=== PATIENT | male | born 1960 | race Caucasian/White ===

== ENCOUNTER 2016-08-26 16:04 | Inpatient (IN) | payer MEDICAID ==
[~2016-08-26] VITALS: Ht 182.9 cm; Wt 77.6 kg
[2016-08-26] MEDS ORDERED: ACET325T9 PO (16:29)
[2016-08-26] MEDS ORDERED: ATOR10TA60 PO (16:30)
[2016-08-26] MEDS ORDERED: DIVA125C PO (16:31)
[2016-08-26] MEDS ORDERED: CALC200T3 PO (16:31)
[2016-08-26] MEDS ORDERED: DOCU100C28 PO (16:32)
[2016-08-26] MEDS ORDERED: DONE10TA7 PO (16:33)
[2016-08-26] MEDS ORDERED: FLUT9.9S NS (16:34)
[2016-08-26] MEDS ORDERED: FLUT16SP21 NS (16:34)
[2016-08-26] MEDS ORDERED: GABA-585 PO (16:37)
[2016-08-26] MEDS ORDERED: MAGN2400 PO (16:37)
[2016-08-26] MEDS ORDERED: MAGN400O7 PO (16:37)
[2016-08-26] MEDS ORDERED: MONT10TA9 PO (16:38)
[2016-08-26] MEDS ORDERED: QUET50TA5 PO (16:43)
[2016-08-26] MEDS ORDERED: ALBU18HF IH (16:46)
--- NOTE | 2016-08-26 17:17 | NUR ---
Pt arrived on unit via gurney accompanied by EMS staff. Direct Admission. Dx: Dementia w delusions, BD. Pt A/O to self, . Pt refused most assessment questions. Pt calm, in dining room eating dinner. Will continue to monitor.
[2016-08-26] MEDS ORDERED: METHYL SALICYLATE/MENTHOL TOPICAL OINTMENT 29GM TUBE. TP PRN (17:30)
[2016-08-26] MEDS ORDERED: MAG HYDROX/AL HYDROX/SIMETH 30 ML ORAL.SUSP PO PRN (17:30)
[2016-08-26] MEDS ORDERED: ACETAMINOPHEN 325 MG TABLET PO PRN ×2 (17:30→18:15)
[2016-08-26] MEDS ORDERED: MAGNESIUM HYDROXIDE 2,400 MG/30 ML ORAL.SUSP. PO PRN (17:30)
[2016-08-26 17:43] VITALS: BP 124/73
[2016-08-26] MEDS ORDERED: ALBUTEROL SULFATE 8GM INHALER. IH PRN (18:30)
[2016-08-26] MEDS ORDERED: CALCIUM CARBONATE 500 MG TAB.CHEW PO PRN (18:30)
[2016-08-26] MEDS ORDERED: ALBUTEROL SULFATE 2.5 MG/3 ML NEBU. NEB PRN (18:45)
--- NOTE | 2016-08-26 18:45 | NUR ---
Order placed for Dr. Todd consult re: hx seizures. Dr. Todd paged and notified.
[2016-08-26] MEDS ORDERED: POLYVINYL ALCOHOL 1.4% OPHTH SOLUTION 15ML BOTTLE. OU PRN (19:00)
[2016-08-26] MEDS: QUEtiapine 50 MG TABLET. PO SCH (19:53)
[2016-08-26] MEDS: DONEPEZIL HCL 10 MG TABLET PO SCH (19:53)
[2016-08-26] MEDS: DIVALPROEX 125 MG CAP.SPRINK PO SCH (19:53)
[2016-08-26] MEDS: GABAPENTIN 100 MG CAPSULE. PO SCH (19:53)
[2016-08-26 20:49] LABS: BASO % 1 % (0-3); EOS # 0.3 x10^3/uL (0.0-0.7); EOS % 7 % (0-3); HEMATOCRIT 44.5 % (39.0-53.0); HEMOGLOBIN 14.7 g/dL (13.0-17.5); LYMPH # 0.9 x10^3/uL (1.0-4.8); LYMPH % 18 % (24-48); MEAN CORPUSCULAR HEMOGLOBIN 30 pg (25-35); MEAN CORPUSCULAR HGB CONC 33 g/dL (31-37); MEAN CORPUSCULAR VOLUME 91 fL (79-100); MONO # 0.4 x10^3/uL (0.0-1.1); MONO % 9 % (0-9); NEUT # 3.2 x10^3uL (1.8-7.7); NEUT % 66 % (31-73); PLATELET COUNT 115 x10^3/uL (140-400); RED BLOOD COUNT 4.92 x10^6/uL (4.30-5.70); RED CELL DISTRIBUTION WIDTH 13.7 % (11.5-14.5); WHITE BLOOD COUNT 4.9 x10^3/uL (4.0-11.0)
--- NOTE | 2016-08-26 20:54 | PDOC ---
Exam Yair Demential Exam: Yair Note: Please also refer to the separate dictated note~for this date of service dictated separately.~Patient seen individually. Discussed the patient with Nursing staff reviewed the chart.~Reviewed interim history and current functioning. Reviewed vital signs,~Labs/ Radiology~and current medications noted below. Continue current treatment with the changes noted in the dictated addendum note Assessment: Vital Signs: Vital Signs Date Time Temp Pulse Resp B/P Pulse Ox O2 Delivery O2 Flow Rate FiO2 08/26/16 17:43 97.8 79 18 124/73 97 Labs: Laboratory Tests Test 08/26/16 20:10 White Blood Count 4.9x10^3/uL (4.0-11.0) Red Blood Count 4.92x10^6/uL (4.30-5.70) Hemoglobin 14.7g/dL (13.0-17.5) Hematocrit 44.5% (39.0-53.0) Mean Corpuscular Volume 91fL (79-100) Mean Corpuscular Hemoglobin 30pg (25-35) Mean Corpuscular Hemoglobin Concent 33g/dL (31-37) Red Cell Distribution Width 13.7% (11.5-14.5) Platelet Count 115x10^3/uL (140-400) L Neutrophils (%) (Auto) 66% (31-73) Lymphocytes (%) (Auto) 18% (24-48) L Monocytes (%) (Auto) 9% (0-9) Eosinophils (%) (Auto) 7% (0-3) H Basophils (%) (Auto) 1% (0-3) Neutrophils # (Auto) 3.2x10^3uL (1.8-7.7) Lymphocytes # (Auto) 0.9x10^3/uL (1.0-4.8) L Monocytes # (Auto) 0.4x10^3/uL (0.0-1.1) Eosinophils # (Auto) 0.3x10^3/uL (0.0-0.7) Basophils # (Auto) 0.0x10^3/uL (0.0-0.2) Current Medications: Meds: Current Medications Acetaminophen (Tylenol) 650 mg PRN Q6HRS PRN PO PAIN / TEMP; Start 08/26/16 at 17:30; Stop 08/26/16 at 18:41; Status DC Multi-Ingredient Ointment (Analgesic [place]) 1 heather PRN QID PRN TP MUSCLE PAIN; Start 08/26/16 at 17:30 Al Hydroxide/Mg Hydroxide (Mylanta Plus Xs) 15 ml PRN AFTMEALHC PRN PO DYSPEPSIA; Start 08/26/16 at 17:30 Magnesium Hydroxide (Milk Of Magnesia) 2,400 mg PRN QHS PRN PO CONSTIPATION; Start 08/26/16 at 17:30 Acetaminophen (Tylenol) 650 mg PRN Q4HRS PRN PO DRY EYE; Start 08/26/16 at 18: 15 Divalproex Sodium (Depakote Sprinkles) 125 mg QID PO Last administered on 19:53; Start 08/26/16 at 21:00 Donepezil HCl (Aricept) 10 mg HS PO Last administered on 08/26/16 19:53; Start 08/26/16 at 21:00 Quetiapine Fumarate (SEROquel) 50 mg TID PO Last administered on 08/26/16 19: 53; Start 08/26/16 at 21:00 Albuterol Sulfate (Ventolin Hfa) 2 puff PRN Q4HRS PRN IH WHEEZING; Start at 18:30; Status UNV Atorvastatin Calcium (Lipitor) 10 mg DAILY PO ; Start 08/27/16 at 09:00 Calcium Carbonate/ Glycine (Tums) 500 mg PRN Q4HRS PRN PO HEARTBURN / GAS; Start 08/26/16 at 18:30 Docusate Sodium (Colace) 100 mg DAILY PO ; Start 08/27/16 at 09:00 Gabapentin (Neurontin) 100 mg TID PO Last administered on 08/26/16 19:53; Start 08/26/16 at 21:00 Magnesium Hydroxide (Milk Of Magnesia) 800 mg DAILY PO ; Start 08/27/16 at 09:00 Montelukast Sodium (Singulair) 10 mg DAILY PO ; Start 08/27/16 at 09:00 Fluticasone Propionate (Flonase) 2 spray DAILY NS ; Start 08/27/16 at 09:00 Albuterol Sulfate (Ventolin) 2.5 mg PRN Q4HRS PRN NEB SHORTNESS OF BREATH; Start 08/26/16 at 18:45 Artificial Tears (Artificial Tears) 1 drop PRN Q15MIN PRN OU DRY EYE; Start at 19:00 Ergocalciferol (Vitamin D2) 50,000 unit WEEKLY PO ; Start 08/29/16 at 12:00 Polyethylene Glycol (miraLAX) 17 gm DAILY PO ; Start 08/27/16 at 09:00 Active Scripts Active Reported Ventolin Hfa Inhaler (Albuterol Sulfate) 18 Gm Hfa.aer.ad 2 Puff IH PRN Q4HRS PRN Seroquel (Quetiapine Fumarate) 50 Mg Tablet 1 Tab PO TID Montelukast Sodium Tablet (Montelukast Sodium) 10 Mg Tablet 10 Mg PO DAILY Milk Of Magnesia (Magnesium Hydroxide) 400 Mg/5 Ml Oral.susp 800 Mg PO DAILY Gabapentin 100 Mg Capsule 100 Mg PO TID Flonase Allergy Relief (Fluticasone Propionate) 9.9 Ml Helm.susp 1 Sprays NS DAILY Donepezil Hcl 10 Mg Tablet 1 Tab PO HS Docusate Sodium 100 Mg Capsule 100 Mg PO DAILY Depakote Sprinkle (Divalproex Sodium) 125 Mg Cap.sprink 125 Mg PO QID Tums (Calcium Carbonate) 200 Mg Tab.chew 200 Mg PO PRN Q4HRS PRN Atorvastatin Calcium 10 Mg Tablet 10 Mg PO DAILY Tylenol (Acetaminophen) 325 Mg Tablet 650 Mg PO PRN Q4HRS PRN Diagnosis: Problems: (1) Anxiety disorder (2) Dementia in Alzheimer's disease with delusions (3) Dementia in Alzheimer's disease with depression (4) Dementia, vascular, with delusions (5) Dementia, vascular, with depression (6) Impulse control disorder ISREAL CUEVA MD Aug 26, 2016 20:54
[2016-08-26 20:56] LABS: ALBUMIN 3.7 g/dL (3.4-5.0); CALCIUM 9.1 mg/dL (8.5-10.1); CREATININE 0.9 mg/dL (0.7-1.3); GFR 87.3; MAGNESIUM 2.1 mg/dL (1.8-2.4); POTASSIUM 3.5 mmol/L (3.5-5.1); TOTAL BILIRUBIN 0.7 mg/dL (0.2-1.0); TOTAL PROTEIN 7.3 g/dL (6.4-8.2)
--- NOTE | 2016-08-26 21:42 | NUR ---
Behavior Intervention Response and Plan: BIRP Note: Behavior: Assumed Care of patient, patient located in Day Room at shift change. Patient exhibited the following behavior Restless, Calm, Disorganized. Brief assessment on rounds of vital signs, medication needs, lab studies, and pain. Treatment plan problems . Intervention: Patient assessed and the following interventions initiated safety checks 15 Minute Checks Cognitive Assessment , Head to toe Assessment , Medications. Response: After interactions and interventions patient responded in the following manner, Compliant , Cooperative ,Compulsive. Continue to assess behaviors and condition will continue to monitor throughout the shift as needed. Plan: Continue to monitor Master Treatment Plan for patient's progress toward short term goals of Decreased Anxiety, Decreased Agitation, usp goals to return to previous living setting vs placement. Continue to assess patient for changes in above assessment. Monitor for medication needs, pain, and safety concerns. Hourly rounding performed to ensure safe environment.
--- NOTE | 2016-08-27 06:48 | NUR ---
SW reviewed pt insurance upon admit. No C-snap, pt intake and face sheet state [place] Medicaid. Precertification will be needed.
[2016-08-27] MEDS: QUEtiapine 50 MG TABLET. PO SCH ×3 (08:23→21:22)
[2016-08-27] MEDS: DIVALPROEX 125 MG CAP.SPRINK PO SCH ×4 (08:23→21:22)
[2016-08-27] MEDS: GABAPENTIN 100 MG CAPSULE. PO SCH ×3 (08:23→21:21)
[2016-08-27] MEDS: DOCUSATE SODIUM 100 MG CAPSULE PO SCH (08:25)
[2016-08-27] MEDS: POLYETHYLENE GLYCOL 3350 17 GM PACKET. PO SCH (08:25)
[2016-08-27] MEDS: MONTELUKAST 10 MG TABLET. PO SCH (08:25)
[2016-08-27] MEDS: ATORVASTATIN CALCIUM 10 MG TABLET. PO SCH (08:26)
[2016-08-27] MEDS: MAGNESIUM HYDROXIDE 2,400 MG/30 ML ORAL.SUSP. PO SCH (08:26)
--- NOTE | 2016-08-27 08:26 | NUR ---
SW called and left message for pt sister DPOA for information regarding PSA.
[2016-08-27] MEDS ORDERED: FLUTICASONE 50MCG/NASAL SPRAY 16GM BOTTLE. NS SCH (09:00)
--- NOTE | 2016-08-27 09:03 | HP ---
ADMIT DATE: 08/26/2016 IDENTIFYING DATA: The patient is a 55-year-old male referred to us from [facility] where the patient had been hospitalized for about 3 days from [facility] in [place], [place] on account of increasing agitation, aggression, frequent falls, inability to follow commands, being impulsive, aggressive towards a certain resident and staff resistive to care, spitting on staff within the context of his dementia secondary to polysubstance abuse and possibly Alzheimer's vascular. The patient was medically stabilized, was still agitated, impulsive, aggressive, felt he was dangerous to return back to the pen[facility] without further psychiatric stabilization and then referred to us. CHIEF COMPLAINT: "No." The patient is rambling and the speech difficult to understand. He has multiple sutured wounds on the forehead, which had been taped up. HISTORY OF PRESENT ILLNESS: The patient has a history of dementia, multifactorial as noted above and psychotic symptoms and frequent falls. At the penitentiary, as noted, he was extremely combative, falling a lot. At the penitentiary, it took several people to pull the patient down for his sutures and then he would get aggressive. He had several visits to the Emergency Room for falls and combativeness and a prior inpatient psychiatric hospitalization at [facility]. CT head showed no acute abnormality during these visits other than chronic small vessel ischemic disease. No clear history of bipolar disorder, suicidal or homicidal ideation, but the dangerous behaviors are above. PAST PSYCHIATRIC HISTORY: As above. MEDICAL HISTORY: Frequent falls, forehead injuries which have been sutured, history of frequent falls, hypernatremia, somnolence, psychosis, COPD, seizure disorder, thrombocytopenia, substance abuse history. DRUG ALLERGIES: Negative. CODE STATUS: DNR. CURRENT PSYCHOTROPICS: Depakote Sprinkle 125 mg 4 times a day, Aricept 10 mg a day, Neurontin 100 mg 3 times a day, Seroquel 50 mg 3 times a day. FAMILY HISTORY: Noncontributory. SOCIAL HISTORY: No physical, sexual or elder abuse history is noted. He is not known to be a perpetrator. He is on a pureed diet. Past history of polysubstance abuse, detailed will be inquired during this hospitalization. MENTAL STATUS EXAM: The patient was seen individually on the evening of 08/26. He is oriented to himself, rambling in his speech. Insight, judgment, recent and remote memory, attention, concentration, fund of knowledge poor, consistent with his diagnosis. VITAL SIGNS: Temperature 97.8, pulse 79, BP 124/73. REVIEW OF SYSTEMS: Ambulation impaired. No CV, , pulmonary, eye, ENT system symptoms on review. Reliability poor. IMPRESSION: Major neurocognitive disorder, multifactorial, possibly due to substance abuse or Alzheimer's vascular with delusions, behavioral disturbance and depression; anxiety disorder, unspecified; impulse control disorder, unspecified. Rest diagnoses as above including seizure disorder, thrombocytopenia. TREATMENT PLAN: Admit to the Geropsychiatry unit at [facility]. I will see the patient daily individually from a psychiatric standpoint. Medical followup with Dr. Steele/Dr. Chadwick. Consult Dr. Todd, Neurology, for managing seizures especially since he has low platelet counts consequent to Depakote in all probability. We will adjust psychotropics try and minimize Seroquel consequent to his fall. Adjust further as clinically indicated. MAN Javon CUEVA MD DR: TSERING/daniel JOB#: [id number] / [id number]
--- NOTE | 2016-08-27 09:51 | NUR ---
Dr Todd ordered EEG of patient in relationship to seizures. Nelson notified of order.
--- NOTE | 2016-08-27 09:52 | NUR ---
Patient has order for labs, very resistive at this time. Crushed this nurses fingers with his hand. Will attempt at a later time.
--- NOTE | 2016-08-27 10:09 | NUR ---
Patient pacing around day room, pulling on doors. Unable to redirect. Pacing is increasing. Attempted to pull curtains down. Notified Dr. Garcia and requested order for PRN medication for agitation.
--- NOTE | 2016-08-27 10:45 | NUR ---
CASE MANAGEMENT NOTE [place] Medicaid called for pre-authorization, ph#[phone], ref#[id number]. Called back with Dr Garcia's license # per their request. Authorized 3 days. They will call back with certification #.
--- NOTE | 2016-08-27 11:00 | NUR ---
patient in seclusion hallway due to pushing a female patient against the wall and then patting a staff member on the bottom. Will continue to monitor.
--- NOTE | 2016-08-27 11:15 | NUR ---
THERAPEUTIC RECREATION GROUP NOTE TITLE :Movement to Music: Flexibility ACTIVITY : Movement/ Exercise GOAL : Increase morale, attention, flexibility. Decrease stress/anxiety. DURATION : 35 Minutes RESPONSE : No participation
--- NOTE | 2016-08-27 12:01 | HP ---
ADMIT DATE: 08/27/2016 MEDICAL HISTORY AND PHYSICAL FOR THE [facility] REASON FOR ADMISSION TO THE [facility]: This is a 55-year-old male with early onset dementia, who was transferred from [facility] beds at the [facility] where he had been inpatient for 3 days. He originally comes from a locked unit at [facility] and was in [place], [place]. He has been falling frequently, sleepy, psychotic, spitting on staff, not following commands and being aggressive toward one particular resident at the nursing facility. CURRENT MEDICAL PROBLEMS: Include hypernatremia, mood disorder, frequent falls, recent fall requiring sutures over right head 3 days ago, dementia with behavior disturbance, COPD, seizure disorder, thrombocytopenia. He has a soft palate problem with subsequent difficult speech. MEDICATION CHANGES: Depakote has been decreased from 250 four times a day to 125 four times a day because of the thrombocytopenia, also possibly because of falls. ALLERGIES: None. MEDICATIONS: Reviewed and are available on the MAR. SOCIAL HISTORY: There is report from his sister that he has a remote history of smoking meth and alcohol problems as well. REVIEW OF SYSTEMS: The patient is unable to state. PHYSICAL EXAMINATION: VITAL SIGNS: Blood pressure 124/73, pulse 79, respirations 18, pulse ox is 97% on room air, temperature 97.8. Height 72 inches, weight 178.19 pounds, BMI 24.2. GENERAL: Unkempt appearing 55-year-old, in no acute distress. HEENT: His hearing is normal. His eyes were clear. His nose was patent. His tongue, he would not open his mouth. His speech is impaired. NECK: Supple. LUNGS: Clear. CARDIOVASCULAR: Regular rhythm and rate. ABDOMEN: Soft, nontender. EXTREMITIES: With evidence of venous stasis. He has extensive onychomycosis of his toes. His gait; he ambulates without a walker, unable to do cranial nerves as the patient would not cooperate. SKIN: The patient has a large sutured laceration over the brow with extensive bruising at least seven sutures are noted. LABORATORY DATA: Platelet count is and he has 7% eosinophils. His sodium 145 and is normal. IMAGING: CT of the head from [facility] shows moderate generalized cerebral atrophy and white matter disease and intracranial atherosclerosis. ASSESSMENT: 1. Dementia with behavior disturbance. 2. Remote history of meth use. 3. I believe also history of alcohol abuse. 4. Mild thrombocytopenia. 5. Status post fall with sutures. 6. Sedation from medications. 7. Chronic obstructive pulmonary disease. 8. Mood disorder. PLAN: Treat his medical conditions and follow along with Dr. Garcia. He will need his sutures out in 5 to 7 days. ZHANNA WINSLOW DO DR: RAVEN/daniel JOB#: [id number] / [id number]
--- NOTE | 2016-08-27 12:40 | NUR ---
Pt intrusive, not redirectable. Given PRN zyprexa 2.5mg PO per order and will continue to monitor.
--- NOTE | 2016-08-27 12:58 | NUR ---
Case Management Note 3 days authorized from [place] Medicaid help desk, with clinical updates or discharge 08-29-16, reference number [id number]. Call hold for any nurse to give clinical.
[2016-08-27 14:34] LABS: THYROID STIM HORMONE (TSH) 2.16 uIU/mL (0.358-3.740)
--- NOTE | 2016-08-27 14:45 | NUR ---
THERAPEUTIC RECREATION GROUP NOTE TITLE :Bin or Basket: [employer] history, quiz and game ACTIVITY : Activities and Games GOAL : Stimulate memory, increase socialization DURATION : 60 minutes RESPONSE : Minimal participation. Pt. sat quietly most of the time with the group but was slow to comply and did not follow directions the entire time. Towards the end of the group, Pt. moved a chair closer to a counter and used it as a step stool to sit upon the counter. Pt. stared blankly at staff who asked him to step down. Pt. did not say a word and did not get down for the rest of the activity.
--- NOTE | 2016-08-27 16:30 | NUR ---
pt found leading female patient into an empty room. this was the same female patient that he was trying to hold hands with and also rubbing her arm. pt became very agitated when from female patient. pt put in the [facility].
--- NOTE | 2016-08-27 17:14 | NUR ---
pt was given PRN. pt in [facility] beating at doors and verbal aggressive towards staff.
[2016-08-27 18:46] LABS: VAL ACID 54 mcg/mL (50-100)
[2016-08-27 19:13] LABS: T3 TOTAL 78 ng/dL (71-180); THYROXINE 6.3 ug/dL (4.5-12.0)
--- NOTE | 2016-08-27 20:59 | PDOC ---
Exam Yair Demential Exam: Yair Note: Please also refer to the separate dictated note~for this date of service dictated separately.~Patient seen individually. Discussed the patient with Nursing staff reviewed the chart.~Reviewed interim history and current functioning. Reviewed vital signs,~Labs/ Radiology~and current medications noted below. Continue current treatment with the changes noted in the dictated addendum note Assessment: Vital Signs: Vital Signs Date Time Temp Pulse Resp B/P Pulse Ox O2 Delivery O2 Flow Rate FiO2 08/27/16 15:29 97.6 88 18 96 08/26/16 17:43 124/73 I&O Intake and Output 08/27/16 07:00 Intake Total 360 ml Balance 360 ml Intake Oral 360 ml Labs: Laboratory Tests Test 08/27/16 18:15 Valproic Acid Level 54mcg/mL (50-100) Valproic Acid Last Dose Date 08/26/16 Valproic Acid Last Dose Time 2100 Current Medications: Meds: Current Medications Acetaminophen (Tylenol) 650 mg PRN Q6HRS PRN PO PAIN / TEMP; Start 08/26/16 at 17:30; Stop 08/26/16 at 18:41; Status DC Multi-Ingredient Ointment (Analgesic [place]) 1 heather PRN QID PRN TP MUSCLE PAIN; Start 08/26/16 at 17:30 Al Hydroxide/Mg Hydroxide (Mylanta Plus Xs) 15 ml PRN AFTMEALHC PRN PO DYSPEPSIA; Start 08/26/16 at 17:30 Magnesium Hydroxide (Milk Of Magnesia) 2,400 mg PRN QHS PRN PO CONSTIPATION; Start 08/26/16 at 17:30 Acetaminophen (Tylenol) 650 mg PRN Q4HRS PRN PO DRY EYE; Start 08/26/16 at 18: 15 Divalproex Sodium (Depakote Sprinkles) 125 mg QID PO Last administered on 16:18; Start 08/26/16 at 21:00 Donepezil HCl (Aricept) 10 mg HS PO Last administered on 08/26/16 19:53; Start 08/26/16 at 21:00 Quetiapine Fumarate (SEROquel) 50 mg TID PO Last administered on 08/27/16 12: 38; Start 08/26/16 at 21:00 Albuterol Sulfate (Ventolin Hfa) 2 puff PRN Q4HRS PRN IH WHEEZING; Start at 18:30; Status UNV Atorvastatin Calcium (Lipitor) 10 mg DAILY PO Last administered on 08/27/16 08 :26; Start 08/27/16 at 09:00 Calcium Carbonate/ Glycine (Tums) 500 mg PRN Q4HRS PRN PO HEARTBURN / GAS; Start 08/26/16 at 18:30 Docusate Sodium (Colace) 100 mg DAILY PO Last administered on 08/27/16 08:25; Start 08/27/16 at 09:00 Gabapentin (Neurontin) 100 mg TID PO Last administered on 08/27/16 12:38; Start 08/26/16 at 21:00 Magnesium Hydroxide (Milk Of Magnesia) 800 mg DAILY PO Last administered on 08:26; Start 08/27/16 at 09:00 Montelukast Sodium (Singulair) 10 mg DAILY PO Last administered on 08/27/16 08 :25; Start 08/27/16 at 09:00 Fluticasone Propionate (Flonase) 2 spray DAILY NS Last administered on 08:23; Start 08/27/16 at 09:00; Stop 08/27/16 at 15:01; Status DC Albuterol Sulfate (Ventolin) 2.5 mg PRN Q4HRS PRN NEB SHORTNESS OF BREATH; Start 08/26/16 at 18:45 Artificial Tears (Artificial Tears) 1 drop PRN Q15MIN PRN OU DRY EYE; Start at 19:00 Ergocalciferol (Vitamin D2) 50,000 unit WEEKLY PO ; Start 08/29/16 at 12:00 Polyethylene Glycol (miraLAX) 17 gm DAILY PO Last administered on 08/27/16 08: 25; Start 08/27/16 at 09:00 Olanzapine (Zyprexa Zydis) 2.5 mg PRN Q2HR PRN PO PSYCHOSIS Last administered on 08/27/16 17:02; Start 08/27/16 at 10:15 Fluticasone Propionate (Flonase) 2 spray DAILY NS ; Start 08/27/16 at 15:01 Buspirone HCl (Buspar) 10 mg BID92 PO ; Start 08/28/16 at 09:00 Active Scripts Active Reported Ventolin Hfa Inhaler (Albuterol Sulfate) 18 Gm Hfa.aer.ad 2 Puff IH PRN Q4HRS PRN Seroquel (Quetiapine Fumarate) 50 Mg Tablet 1 Tab PO TID Montelukast Sodium Tablet (Montelukast Sodium) 10 Mg Tablet 10 Mg PO DAILY Milk Of Magnesia (Magnesium Hydroxide) 400 Mg/5 Ml Oral.susp 800 Mg PO DAILY Gabapentin 100 Mg Capsule 100 Mg PO TID Flonase Allergy Relief (Fluticasone Propionate) 9.9 Ml [place].susp 1 Sprays NS DAILY Donepezil Hcl 10 Mg Tablet 1 Tab PO HS Docusate Sodium 100 Mg Capsule 100 Mg PO DAILY Depakote Sprinkle (Divalproex Sodium) 125 Mg Cap.sprink 125 Mg PO QID Tums (Calcium Carbonate) 200 Mg Tab.chew 200 Mg PO PRN Q4HRS PRN Atorvastatin Calcium 10 Mg Tablet 10 Mg PO DAILY Tylenol (Acetaminophen) 325 Mg Tablet 650 Mg PO PRN Q4HRS PRN Diagnosis: Problems: (1) Anxiety disorder (2) Dementia in Alzheimer's disease with delusions (3) Dementia in Alzheimer's disease with depression (4) Dementia, vascular, with delusions (5) Dementia, vascular, with depression (6) Impulse control disorder ISREAL CUEVA MD Aug 27, 2016 20:59
[2016-08-27] MEDS: DONEPEZIL HCL 10 MG TABLET PO SCH (21:21)
--- NOTE | 2016-08-27 23:08 | NUR ---
Behavior Intervention Response and Plan: BIRP Note: Behavior: Assumed Care of patient, patient located in Day Room at shift change. Patient exhibited the following behavior Wandering, Withdrawn, Disorganized. Brief assessment on rounds of vital signs, medication needs, lab studies, and pain. Treatment plan problems Dementia w/ BD and Fall Risk. Intervention: Patient assessed and the following interventions initiated safety checks 15 Minute Checks Cognitive Assessment , Medications , Oral Hydration. Response: After interactions and interventions patient responded in the following manner, Wandering , Agitated ,Disorganized. Continue to assess behaviors and condition will continue to monitor throughout the shift as needed. Plan: Continue to monitor Master Treatment Plan for patient's progress toward short term goals of Decreased Agitation, Decreased Aggression, fci goals to return to previous living setting vs placement. Continue to assess patient for changes in above assessment. Monitor for medication needs, pain, and safety concerns. Hourly rounding performed to ensure safe environment.
[2016-08-28 06:40] VITALS: BP 118/84
[2016-08-28] MEDS: DIVALPROEX 125 MG CAP.SPRINK PO SCH ×4 (07:46→20:55)
[2016-08-28] MEDS: MONTELUKAST 10 MG TABLET. PO SCH (07:46)
[2016-08-28] MEDS: ATORVASTATIN CALCIUM 10 MG TABLET. PO SCH (07:46)
[2016-08-28] MEDS: GABAPENTIN 100 MG CAPSULE. PO SCH ×3 (07:46→21:02)
[2016-08-28] MEDS: QUEtiapine 50 MG TABLET. PO SCH ×2 (07:46→11:51)
[2016-08-28] MEDS: MAGNESIUM HYDROXIDE 2,400 MG/30 ML ORAL.SUSP. PO SCH (07:46)
[2016-08-28] MEDS: DOCUSATE SODIUM 100 MG CAPSULE PO SCH (07:46)
[2016-08-28] MEDS: FLUTICASONE 50MCG/NASAL SPRAY 16GM BOTTLE. NS SCH (07:47)
[2016-08-28] MEDS: POLYETHYLENE GLYCOL 3350 17 GM PACKET. PO SCH (07:47)
[2016-08-28] MEDS: busPIRone 10 MG TABLET. PO SCH ×2 (07:53→11:51)
--- NOTE | 2016-08-28 09:31 | NUR ---
Behavior Intervention Response and Plan: BIRP Note: Behavior: Assumed Care of patient, patient located in Patient Room at shift change. Patient exhibited the following behavior Disorganized, Compliant, Compliant. Brief assessment on rounds of vital signs, medication needs, lab studies, and pain. Treatment plan problems . Intervention: Patient assessed and the following interventions initiated safety checks 15 Minute Checks Cognitive Assessment , Head to toe Assessment , Medications. Response: After interactions and interventions patient responded in the following manner, Compulsive , Compliant ,Drowsy. Continue to assess behaviors and condition will continue to monitor throughout the shift as needed. 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 Continue to assess patient for changes in above assessment. Monitor for medication needs, pain, and safety concerns. Hourly rounding performed to ensure safe environment.
--- NOTE | 2016-08-28 13:56 | NUR ---
pt refused to lie still for EEG. sutures removed from r brow with difficulty. steri strip applied. had med size scab loose. removed. does not appear to have any suture underneath. has been compliant with meds. redirectable with encouragement.
--- NOTE | 2016-08-28 16:00 | NUR ---
THERAPEUTIC RECREATION GROUP NOTE TITLE :Mark Negro Planter Painting ACTIVITY : Arts and Crafts GOAL : Increase creativity, fine motor, socialization. DURATION : 60 minutes RESPONSE : No participation.
--- NOTE | 2016-08-28 19:00 | NUR ---
THERAPEUTIC RECREATION GROUP NOTE TITLE :Complete the popular phrase/ idiom ACTIVITY : Cognitive Stimulation GOAL : Stimulate memory, Increase problem solving DURATION : 60 minutes RESPONSE : No participation.
--- NOTE | 2016-08-28 20:52 | PDOC ---
Exam Yair Demential Exam: Yair Note: Please also refer to the separate dictated note~for this date of service dictated separately.~Patient seen individually. Discussed the patient with Nursing staff reviewed the chart.~Reviewed interim history and current functioning. Reviewed vital signs,~Labs/ Radiology~and current medications noted below. Continue current treatment with the changes noted in the dictated addendum note Assessment: Vital Signs: Vital Signs Date Time Temp Pulse Resp B/P Pulse Ox O2 Delivery O2 Flow Rate FiO2 08/28/16 06:40 53 16 118/84 95 08/27/16 15:29 97.6 I&O Intake and Output 08/28/16 07:00 Intake Total 720 ml Balance 720 ml Intake Oral 720 ml Current Medications: Meds: Current Medications Acetaminophen (Tylenol) 650 mg PRN Q6HRS PRN PO PAIN / TEMP; Start 08/26/16 at 17:30; Stop 08/26/16 at 18:41; Status DC Multi-Ingredient Ointment (Analgesic [place]) 1 heather PRN QID PRN TP MUSCLE PAIN; Start 08/26/16 at 17:30 Al Hydroxide/Mg Hydroxide (Mylanta Plus Xs) 15 ml PRN AFTMEALHC PRN PO DYSPEPSIA; Start 08/26/16 at 17:30 Magnesium Hydroxide (Milk Of Magnesia) 2,400 mg PRN QHS PRN PO CONSTIPATION; Start 08/26/16 at 17:30 Acetaminophen (Tylenol) 650 mg PRN Q4HRS PRN PO DRY EYE; Start 08/26/16 at 18: 15 Divalproex Sodium (Depakote Sprinkles) 125 mg QID PO Last administered on 17:19; Start 08/26/16 at 21:00 Donepezil HCl (Aricept) 10 mg HS PO Last administered on 08/27/16 21:21; Start 08/26/16 at 21:00 Quetiapine Fumarate (SEROquel) 50 mg TID PO Last administered on 08/28/16 11: 51; Start 08/26/16 at 21:00; Stop 08/28/16 at 19:10; Status DC Albuterol Sulfate (Ventolin Hfa) 2 puff PRN Q4HRS PRN IH WHEEZING; Start at 18:30; Status UNV Atorvastatin Calcium (Lipitor) 10 mg DAILY PO Last administered on 08/28/16 07 :46; Start 08/27/16 at 09:00; Stop 08/28/16 at 14:31; Status DC Calcium Carbonate/ Glycine (Tums) 500 mg PRN Q4HRS PRN PO HEARTBURN / GAS; Start 08/26/16 at 18:30 Docusate Sodium (Colace) 100 mg DAILY PO Last administered on 08/28/16 07:46; Start 08/27/16 at 09:00 Gabapentin (Neurontin) 100 mg TID PO Last administered on 08/28/16 11:51; Start 08/26/16 at 21:00 Magnesium Hydroxide (Milk Of Magnesia) 800 mg DAILY PO Last administered on 07:46; Start 08/27/16 at 09:00 Montelukast Sodium (Singulair) 10 mg DAILY PO Last administered on 08/28/16 07 :46; Start 08/27/16 at 09:00 Fluticasone Propionate (Flonase) 2 spray DAILY NS Last administered on 08:23; Start 08/27/16 at 09:00; Stop 08/27/16 at 15:01; Status DC Albuterol Sulfate (Ventolin) 2.5 mg PRN Q4HRS PRN NEB SHORTNESS OF BREATH; Start 08/26/16 at 18:45 Artificial Tears (Artificial Tears) 1 drop PRN Q15MIN PRN OU DRY EYE; Start at 19:00 Ergocalciferol (Vitamin D2) 50,000 unit WEEKLY PO ; Start 08/29/16 at 12:00 Polyethylene Glycol (miraLAX) 17 gm DAILY PO Last administered on 08/28/16 07: 47; Start 08/27/16 at 09:00 Olanzapine (Zyprexa Zydis) 2.5 mg PRN Q2HR PRN PO PSYCHOSIS Last administered on 08/28/16 17:23; Start 08/27/16 at 10:15 Fluticasone Propionate (Flonase) 2 spray DAILY NS Last administered on 07:47; Start 08/27/16 at 15:01 Buspirone HCl (Buspar) 10 mg BID92 PO Last administered on 4/21/17at 11:51; Start 08/28/16 at 09:00 Atorvastatin Calcium (Lipitor) 20 mg DAILY PO ; Start 08/29/16 at 09:00 Prenat Multivit/ [place]/Iron/Folic Ac (Multivitamin ) 1 tab DAILY PO ; Start 08/29/16 at 09:00 Risperidone (Risperdal) 0.25 mg BID PO ; Start 08/28/16 at 21:00 Active Scripts Active Reported Ventolin Hfa Inhaler (Albuterol Sulfate) 18 Gm Hfa.aer.ad 2 Puff IH PRN Q4HRS PRN Seroquel (Quetiapine Fumarate) 50 Mg Tablet 1 Tab PO TID Montelukast Sodium Tablet (Montelukast Sodium) 10 Mg Tablet 10 Mg PO DAILY Milk Of Magnesia (Magnesium Hydroxide) 400 Mg/5 Ml Oral.susp 800 Mg PO DAILY Gabapentin 100 Mg Capsule 100 Mg PO TID Flonase Allergy Relief (Fluticasone Propionate) 9.9 Ml [place].susp 1 Sprays NS DAILY Donepezil Hcl 10 Mg Tablet 1 Tab PO HS Docusate Sodium 100 Mg Capsule 100 Mg PO DAILY Depakote Sprinkle (Divalproex Sodium) 125 Mg Cap.sprink 125 Mg PO QID Tums (Calcium Carbonate) 200 Mg Tab.chew 200 Mg PO PRN Q4HRS PRN Atorvastatin Calcium 10 Mg Tablet 10 Mg PO DAILY Tylenol (Acetaminophen) 325 Mg Tablet 650 Mg PO PRN Q4HRS PRN Diagnosis: Problems: (1) Anxiety disorder (2) Dementia in Alzheimer's disease with delusions (3) Dementia in Alzheimer's disease with depression (4) Dementia, vascular, with delusions (5) Dementia, vascular, with depression (6) Impulse control disorder ISREAL CUEVA MD Aug 28, 2016 20:52
[2016-08-28] MEDS: DONEPEZIL HCL 10 MG TABLET PO SCH (20:55)
[2016-08-28] MEDS: risperiDONE 0.25 MG TABLET. PO SCH (21:03)
--- NOTE | 2016-08-28 22:02 | PN ---
DATE: 08/27/2016 PSYCHIATRIC PROGRESS NOTE This is late entry of 08/27/2016, covers elements not covered in my initial note. SUBJECTIVE: The patient was staffed at treatment team meeting with the entire team at morning of 08/27/2016, seen individually evening of 08/27/2016. He remains quite labile, anxious, agitated, was trying to take one of the female, demented patients into a room and then attempted with another one. He has had to be placed in a separate hallway, seems dangerous, impulsive, certainly very confused, resistive to care, slept in the quiet room. REVIEW OF SYSTEMS: No CV, , pulmonary, eye, ENT system symptoms on review. Reliability poor. MENTAL STATUS EXAMINATION: Oriented to himself. Insight, judgment, recent and remote memory, attention, concentration, fund of knowledge poor, consistent with his diagnosis mentioned in my initial note. IMPRESSION: Major neurocognitive disorder, Alzheimer, vascular with depression, delusion, behavioral disturbance; anxiety disorder, unspecified; impulse control disorder, unspecified. PLAN: Check valproic acid level, BuSpar is 10 mg twice a day, which has been started on 08/27/2016, Zyprexa added 2.5 mg q.2h. p.r.n., max 10 mg in 24 hours for psychosis, agitation. This is after nursing staff called me as an emergency earlier on 08/27/2016 for his erratic, labile, aggressive, dangerous behaviors. Maintain Seroquel 50 t.i.d., Aricept 10 mg a day. He remains a fall risk, unsteady gait. ISREAL CUEVA MD DR: TSERING/daniel JOB#: [id number] / [id number]
--- NOTE | 2016-08-28 23:23 | NUR ---
Behavior Intervention Response and Plan: BIRP Note: Behavior: Assumed Care of patient, patient located in Hallway at shift change. Patient exhibited the following behavior Restless, Wandering, Agitated. Brief assessment on rounds of vital signs, medication needs, lab studies, and pain. Treatment plan problems Dementia w/ BD and Fall Risk. Intervention: Patient assessed and the following interventions initiated safety checks 15 Minute Checks Cognitive Assessment , Head to toe Assessment , Medications. Response: After interactions and interventions patient responded in the following manner, Restless , Wandering ,Agitated. Continue to assess behaviors and condition will continue to monitor throughout the shift as needed. Plan: Continue to monitor Master Treatment Plan for patient's progress toward short term goals of Decreased Agitation, Decreased Aggression, long-term goals to return to previous living setting vs placement. Continue to assess patient for changes in above assessment. Monitor for medication needs, pain, and safety concerns. Hourly rounding performed to ensure safe environment.
[2016-08-29] MEDS: DIVALPROEX 125 MG CAP.SPRINK PO SCH ×4 (07:46→20:24)
[2016-08-29] MEDS: risperiDONE 0.25 MG TABLET. PO SCH ×2 (07:46→20:25)
[2016-08-29] MEDS: MONTELUKAST 10 MG TABLET. PO SCH (07:46)
[2016-08-29] MEDS: MAGNESIUM HYDROXIDE 2,400 MG/30 ML ORAL.SUSP. PO SCH (07:46)
[2016-08-29] MEDS: busPIRone 10 MG TABLET. PO SCH ×2 (07:46→12:22)
[2016-08-29] MEDS: POLYETHYLENE GLYCOL 3350 17 GM PACKET. PO SCH (07:46)
[2016-08-29] MEDS: GABAPENTIN 100 MG CAPSULE. PO SCH ×3 (07:46→20:25)
[2016-08-29] MEDS: DOCUSATE SODIUM 100 MG CAPSULE PO SCH (07:46)
[2016-08-29] MEDS: FLUTICASONE 50MCG/NASAL SPRAY 16GM BOTTLE. NS SCH (07:47)
[2016-08-29] MEDS: PRENATAL MULTIVITAMIN TABLET. PO SCH (08:01)
--- NOTE | 2016-08-29 08:53 | NUR ---
Behavior Intervention Response and Plan: BIRP Note: Behavior: Assumed Care of patient, patient located in Patient Room at shift change. Patient exhibited the following behavior Disorganized, Compliant, Compliant. Brief assessment on rounds of vital signs, medication needs, lab studies, and pain. Treatment plan problems . Intervention: Patient assessed and the following interventions initiated safety checks 15 Minute Checks Cognitive Assessment , Head to toe Assessment , Medications. Response: After interactions and interventions patient responded in the following manner, Compulsive , Compliant ,Drowsy. Continue to assess behaviors and condition will continue to monitor throughout the shift as needed. 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 Continue to assess patient for changes in above assessment. Monitor for medication needs, pain, and safety concerns. Hourly rounding performed to ensure safe environment.
[2016-08-29] MEDS ORDERED: ATORVASTATIN CALCIUM 10 MG TABLET. PO SCH (09:00)
--- NOTE | 2016-08-29 10:30 | NUR ---
ACTIVITY THERAPY ASSESSMENT Completed based on observations and interview on this day at this time in the day room. Pt. was not agreeable throughout the assessment. He did not look at MORTGAGE BANKER or answer any assessment questions. When asked if he could hear MORTGAGE BANKER, Pt. nodded and said yes; however, that was the only interaction he showed. Pt's speech is difficult to understand. His right eye had bruising around it and a head wound with bandage strips on his forehead, above his right eye. Pt. does not socialize with others and wanders. Initial goal: Pt. will participate in at least one group before discharge.
--- NOTE | 2016-08-29 11:00 | NUR ---
THERAPEUTIC RECREATION GROUP NOTE TITLE :: Flower planting in painted tin cans ACTIVITY : Sensory Stimulation GOAL : Increase feeling of wellness, socialization, and facilitate memory DURATION : 30 minutes RESPONSE : No participation.
[2016-08-29] MEDS: ERGOCALCIFEROL (VITAMIN D2) 50,000 UNIT CAPSULE PO SCH (12:00)
[2016-08-29 16:07] VITALS: BP 121/80
--- NOTE | 2016-08-29 17:29 | NUR ---
pt up adl n halls. has been redirectable at most times. did not want to come to supper. stated he did not "want that shit." staff was able to get him to go down to supper. has been compliant with meds and cares thus far. handsey with staff at times.
[2016-08-29] MEDS: DONEPEZIL HCL 10 MG TABLET PO SCH (20:24)
[2016-08-29] MEDS: ATORVASTATIN CALCIUM 10 MG TABLET. PO SCH (20:27)
--- NOTE | 2016-08-29 21:03 | PDOC ---
Exam Yair Demential Exam: Yair Note: Please also refer to the separate dictated note~for this date of service dictated separately.~Patient seen individually. Discussed the patient with Nursing staff reviewed the chart.~Reviewed interim history and current functioning. Reviewed vital signs,~Labs/ Radiology~and current medications noted below. Continue current treatment with the changes noted in the dictated addendum note Assessment: Vital Signs: Vital Signs Date Time Temp Pulse Resp B/P Pulse Ox O2 Delivery O2 Flow Rate FiO2 08/29/16 16:07 97.5 64 19 121/80 98 I&O Intake and Output 08/29/16 07:00 Intake Total 480 ml Balance 480 ml Intake Oral 480 ml Current Medications: Meds: Current Medications Acetaminophen (Tylenol) 650 mg PRN Q6HRS PRN PO PAIN / TEMP; Start 08/26/16 at 17:30; Stop 08/26/16 at 18:41; Status DC Multi-Ingredient Ointment (Analgesic [place]) 1 heather PRN QID PRN TP MUSCLE PAIN; Start 08/26/16 at 17:30 Al Hydroxide/Mg Hydroxide (Mylanta Plus Xs) 15 ml PRN AFTMEALHC PRN PO DYSPEPSIA; Start 08/26/16 at 17:30 Magnesium Hydroxide (Milk Of Magnesia) 2,400 mg PRN QHS PRN PO CONSTIPATION; Start 08/26/16 at 17:30 Acetaminophen (Tylenol) 650 mg PRN Q4HRS PRN PO DRY EYE; Start 08/26/16 at 18: 15 Divalproex Sodium (Depakote Sprinkles) 125 mg QID PO Last administered on 20:24; Start 08/26/16 at 21:00 Donepezil HCl (Aricept) 10 mg HS PO Last administered on 08/29/16 20:24; Start 08/26/16 at 21:00 Quetiapine Fumarate (SEROquel) 50 mg TID PO Last administered on 08/28/16 11: 51; Start 08/26/16 at 21:00; Stop 08/28/16 at 19:10; Status DC Albuterol Sulfate (Ventolin Hfa) 2 puff PRN Q4HRS PRN IH WHEEZING; Start at 18:30; Status UNV Atorvastatin Calcium (Lipitor) 10 mg DAILY PO Last administered on 08/28/16 07 :46; Start 08/27/16 at 09:00; Stop 08/28/16 at 14:31; Status DC Calcium Carbonate/ Glycine (Tums) 500 mg PRN Q4HRS PRN PO HEARTBURN / GAS; Start 08/26/16 at 18:30 Docusate Sodium (Colace) 100 mg DAILY PO Last administered on 08/29/16 07:46; Start 08/27/16 at 09:00 Gabapentin (Neurontin) 100 mg TID PO Last administered on 08/29/16 20:25; Start 08/26/16 at 21:00 Magnesium Hydroxide (Milk Of Magnesia) 800 mg DAILY PO Last administered on 07:46; Start 08/27/16 at 09:00 Montelukast Sodium (Singulair) 10 mg DAILY PO Last administered on 08/29/16 07 :46; Start 08/27/16 at 09:00 Fluticasone Propionate (Flonase) 2 spray DAILY NS Last administered on 08:23; Start 08/27/16 at 09:00; Stop 08/27/16 at 15:01; Status DC Albuterol Sulfate (Ventolin) 2.5 mg PRN Q4HRS PRN NEB SHORTNESS OF BREATH; Start 08/26/16 at 18:45 Artificial Tears (Artificial Tears) 1 drop PRN Q15MIN PRN OU DRY EYE; Start at 19:00 Ergocalciferol (Vitamin D2) 50,000 unit WEEKLY PO Last administered on 12:00; Start 08/29/16 at 12:00 Polyethylene Glycol (miraLAX) 17 gm DAILY PO Last administered on 08/29/16 07: 46; Start 08/27/16 at 09:00 Olanzapine (Zyprexa Zydis) 2.5 mg PRN Q2HR PRN PO PSYCHOSIS Last administered on 08/28/16 17:23; Start 08/27/16 at 10:15 Fluticasone Propionate (Flonase) 2 spray DAILY NS Last administered on 07:47; Start 08/27/16 at 15:01 Buspirone HCl (Buspar) 10 mg BID92 PO Last administered on 08/29/16 12:22; Start 08/28/16 at 09:00 Atorvastatin Calcium (Lipitor) 20 mg DAILY PO ; Start 08/29/16 at 09:00; Stop at 09:00; Status DC Prenat Multivit/ Applications Systems Engineer/Iron/Folic Ac (Multivitamin ) 1 tab DAILY PO Last administered on 08/29/16 08:01; Start 08/29/16 at 09:00 Risperidone (Risperdal) 0.25 mg BID PO Last administered on 08/29/16 20:25; Start 08/28/16 at 21:00 Atorvastatin Calcium (Lipitor) 20 mg HS PO Last administered on 08/29/16 20:27 ; Start 08/29/16 at 21:00 Active Scripts Active Reported Ventolin Hfa Inhaler (Albuterol Sulfate) 18 Gm Hfa.aer.ad 2 Puff IH PRN Q4HRS PRN Seroquel (Quetiapine Fumarate) 50 Mg Tablet 1 Tab PO TID Montelukast Sodium Tablet (Montelukast Sodium) 10 Mg Tablet 10 Mg PO DAILY Milk Of Magnesia (Magnesium Hydroxide) 400 Mg/5 Ml Oral.susp 800 Mg PO DAILY Gabapentin 100 Mg Capsule 100 Mg PO TID Flonase Allergy Relief (Fluticasone Propionate) 9.9 Ml [place].susp 1 Sprays NS DAILY Donepezil Hcl 10 Mg Tablet 1 Tab PO HS Docusate Sodium 100 Mg Capsule 100 Mg PO DAILY Depakote Sprinkle (Divalproex Sodium) 125 Mg Cap.sprink 125 Mg PO QID Tums (Calcium Carbonate) 200 Mg Tab.chew 200 Mg PO PRN Q4HRS PRN Atorvastatin Calcium 10 Mg Tablet 10 Mg PO DAILY Tylenol (Acetaminophen) 325 Mg Tablet 650 Mg PO PRN Q4HRS PRN Diagnosis: Problems: (1) Anxiety disorder (2) Dementia in Alzheimer's disease with delusions (3) Dementia in Alzheimer's disease with depression (4) Dementia, vascular, with delusions (5) Dementia, vascular, with depression (6) Impulse control disorder ISREAL CUEVA MD Aug 29, 2016 21:03
--- NOTE | 2016-08-30 01:20 | NUR ---
Behavior Intervention Response and Plan: BIRP Note: Behavior: Assumed Care of patient, patient located in Hallway at shift change. Patient exhibited the following behavior Wandering, Calm, Disorganized. Brief assessment on rounds of vital signs, medication needs, lab studies, and pain. Treatment plan problems Dementia w/ BD and Fall Risk. Intervention: Patient assessed and the following interventions initiated safety checks 15 Minute Checks Cognitive Assessment , Medications , Nutrition. Response: After interactions and interventions patient responded in the following manner, Calm , Wandering ,Cooperative. Continue to assess behaviors and condition will continue to monitor throughout the shift as needed. 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 Continue to assess patient for changes in above assessment. Monitor for medication needs, pain, and safety concerns. Hourly rounding performed to ensure safe environment.
[2016-08-30 06:55] VITALS: BP 112/81
[2016-08-30] MEDS: POLYETHYLENE GLYCOL 3350 17 GM PACKET. PO SCH (07:38)
[2016-08-30] MEDS: MAGNESIUM HYDROXIDE 2,400 MG/30 ML ORAL.SUSP. PO SCH (07:38)
[2016-08-30] MEDS: DOCUSATE SODIUM 100 MG CAPSULE PO SCH (07:38)
[2016-08-30] MEDS: MONTELUKAST 10 MG TABLET. PO SCH (07:39)
[2016-08-30] MEDS: FLUTICASONE 50MCG/NASAL SPRAY 16GM BOTTLE. NS SCH (07:39)
[2016-08-30] MEDS: GABAPENTIN 100 MG CAPSULE. PO SCH ×3 (07:39→19:42)
[2016-08-30] MEDS: PRENATAL MULTIVITAMIN TABLET. PO SCH (07:39)
[2016-08-30] MEDS: risperiDONE 0.25 MG TABLET. PO SCH ×2 (07:39→19:42)
[2016-08-30] MEDS: busPIRone 10 MG TABLET. PO SCH ×2 (07:39→12:17)
[2016-08-30] MEDS: DIVALPROEX 125 MG CAP.SPRINK PO SCH ×4 (07:39→19:42)
[2016-08-30 08:16] LABS: BASO % 1 % (0-3); EOS # 0.3 x10^3/uL (0.0-0.7); EOS % 7 % (0-3); HEMATOCRIT 42.1 % (39.0-53.0); HEMOGLOBIN 14.3 g/dL (13.0-17.5); LYMPH # 0.9 x10^3/uL (1.0-4.8); LYMPH % 19 % (24-48); MEAN CORPUSCULAR HEMOGLOBIN 31 pg (25-35); MEAN CORPUSCULAR HGB CONC 34 g/dL (31-37); MEAN CORPUSCULAR VOLUME 91 fL (79-100); MONO # 0.7 x10^3/uL (0.0-1.1); MONO % 15 % (0-9); NEUT # 2.9 x10^3uL (1.8-7.7); NEUT % 59 % (31-73); PLATELET COUNT 134 x10^3/uL (140-400); RED BLOOD COUNT 4.65 x10^6/uL (4.30-5.70)
[2016-08-30 08:22] LABS: ALBUMIN 3.7 g/dL (3.4-5.0); GFR 77.3; POTASSIUM 4.1 mmol/L (3.5-5.1); TOTAL BILIRUBIN 1.3 mg/dL (0.2-1.0); TOTAL PROTEIN 7.3 g/dL (6.4-8.2)
--- NOTE | 2016-08-30 08:50 | PN ---
DATE: 08/28/2016 PSYCHIATRIC PROGRESS NOTE This is a late entry of 08/28/2016 covers elements not covered in my initial note. SUBJECTIVE: The patient has been extremely erratic, disruptive, labile. He has had to be to a separate hallway, talking about picking up younger girls. Refused his EEG, sutures have been reduced. REVIEW OF SYSTEMS: No CV, , eye, ENT or pulmonary system symptoms on review. Reliability poor. MENTAL STATUS EXAM: Oriented to himself. Insight, judgment, recent and remote memory, attention, concentration, fund of knowledge poor, consistent with his diagnosis. He is quite psychotic, as I met with him and individually at some length. LABORATORY DATA: Reviewed. IMPRESSION: Major neurocognitive disorder, Alzheimer, vascular with depression, delusion and behavioral disturbance. Past history of polysubstance abuse, psychotic disorder, unspecified. PLAN: Change Seroquel 50 mg t.i.d. to Risperdal 0.25 mg twice a day. Continue Aricept 10 mg a day, Depakote 125 four times a day, Zyprexa p.r.n. We will defer to Dr. Todd to decide on the Depakote dosage for his seizures, which would also control his behavioral dyscontrol. ISREAL CUEVA MD DR: TSERING/nts JOB#: [id number] / [id number]
--- NOTE | 2016-08-30 08:53 | PN ---
DATE: 08/29/2016 PSYCHIATRIC PROGRESS NOTE This is a late entry of 08/29/2016 cover elements not covered in my initial note. SUBJECTIVE: Per nursing report, the patient has been wandering was agitated before supper making comments like "do not like shit." He was referring with his common to his pureed diet. Oral intake is poor and we will check labs in the morning of 08/30/2016 to make sure he is not getting dehydrated. He is being followed by Dr. Todd for his seizure disorder and I will defer the further adjustment of Depakote to Dr. Todd. He is ambulating better on his own, no longer in a contained hallway. REVIEW OF SYSTEMS: No CV, , eye, ENT or pulmonary system symptoms on review. Reliability poor. MENTAL STATUS EXAM: Oriented to himself. Insight, judgment, recent and remote memory, attention, concentration, fund of knowledge poor, consistent with his diagnosis mentioned in my initial note. Continue psychotropics unchanged for now, adjust as clinically indicated. Check valproic acid level. MAN Javon CUEVA MD DR: TSERING/daniel JOB#: [id number] / [id number]
--- NOTE | 2016-08-30 09:29 | NUR ---
Behavior Intervention Response and Plan: BIRP Note: Behavior: Assumed Care of patient, patient located in Patient Room at shift change. Patient exhibited the following behavior Disorganized, Compliant, Compliant. Brief assessment on rounds of vital signs, medication needs, lab studies, and pain. Treatment plan problems . Intervention: Patient assessed and the following interventions initiated safety checks 15 Minute Checks Cognitive Assessment , Head to toe Assessment , Medications. Response: After interactions and interventions patient responded in the following manner, Compulsive , Compliant ,Drowsy. Continue to assess behaviors and condition will continue to monitor throughout the shift as needed. 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 Continue to assess patient for changes in above assessment. Monitor for medication needs, pain, and safety concerns. Hourly rounding performed to ensure safe environment.
--- NOTE | 2016-08-30 15:19 | NUR ---
pt up adl to meals. wanders in halls. irritable in am when changed as he was incont of bowel. also irritable when escorted from a peers room. PRNs utilized. has been compliant with meds.
[2016-08-30 16:59] VITALS: BP 107/65
[2016-08-30] MEDS: ATORVASTATIN CALCIUM 10 MG TABLET. PO SCH (19:42)
[2016-08-30] MEDS: DONEPEZIL HCL 10 MG TABLET PO SCH (19:42)
--- NOTE | 2016-08-30 20:52 | PDOC ---
Exam Yair Demential Exam: Yair Note: Please also refer to the separate dictated note~for this date of service dictated separately.~Patient seen individually. Discussed the patient with Nursing staff reviewed the chart.~Reviewed interim history and current functioning. Reviewed vital signs,~Labs/ Radiology~and current medications noted below. Continue current treatment with the changes noted in the dictated addendum note Assessment: Vital Signs: Vital Signs Date Time Temp Pulse Resp B/P Pulse Ox O2 Delivery O2 Flow Rate FiO2 08/30/16 16:59 96.9 86 18 107/65 97 I&O Intake and Output 08/30/16 07:00 Intake Total 960 ml Balance 960 ml Intake Oral 960 ml # Bowel Movements 1 Labs: Laboratory Tests Test 08/30/16 07:46 White Blood Count 5.0x10^3/uL (4.0-11.0) Red Blood Count 4.65x10^6/uL (4.30-5.70) Hemoglobin 14.3g/dL (13.0-17.5) Hematocrit 42.1% (39.0-53.0) Mean Corpuscular Volume 91fL (79-100) Mean Corpuscular Hemoglobin 31pg (25-35) Mean Corpuscular Hemoglobin Concent 34g/dL (31-37) Red Cell Distribution Width 14.0% (11.5-14.5) Platelet Count 134x10^3/uL (140-400) L Neutrophils (%) (Auto) 59% (31-73) Lymphocytes (%) (Auto) 19% (24-48) L Monocytes (%) (Auto) 15% (0-9) H Eosinophils (%) (Auto) 7% (0-3) H Basophils (%) (Auto) 1% (0-3) Neutrophils # (Auto) 2.9x10^3uL (1.8-7.7) Lymphocytes # (Auto) 0.9x10^3/uL (1.0-4.8) L Monocytes # (Auto) 0.7x10^3/uL (0.0-1.1) Eosinophils # (Auto) 0.3x10^3/uL (0.0-0.7) Basophils # (Auto) 0.0x10^3/uL (0.0-0.2) Sodium Level 140mmol/L (136-145) Potassium Level 4.1mmol/L (3.5-5.1) Chloride Level 104mmol/L (98-107) Carbon Dioxide Level 27mmol/L (21-32) Anion Gap 9 (6-14) Blood Urea Nitrogen 12mg/dL (8-26) Creatinine 1.0mg/dL (0.7-1.3) Estimated GFR (Cockcroft-Gault) 77.3 BUN/Creatinine Ratio 12 (6-20) Glucose Level 93mg/dL (70-99) Calcium Level 9.0mg/dL (8.5-10.1) Total Bilirubin 1.3mg/dL (0.2-1.0) H Aspartate Amino Transferase (AST) 45U/L (15-37) H Alanine Aminotransferase (ALT) 64U/L (16-63) H Alkaline Phosphatase 60U/L (46-116) Total Protein 7.3g/dL (6.4-8.2) Albumin 3.7g/dL (3.4-5.0) Albumin/Globulin Ratio 1.0 (1.0-1.7) Current Medications: Meds: Current Medications Acetaminophen (Tylenol) 650 mg PRN Q6HRS PRN PO PAIN / TEMP; Start 08/26/16 at 17:30; Stop 08/26/16 at 18:41; Status DC Multi-Ingredient Ointment (Analgesic [employer]) 1 heather PRN QID PRN TP MUSCLE PAIN; Start 08/26/16 at 17:30 Al Hydroxide/Mg Hydroxide (Mylanta Plus Xs) 15 ml PRN AFTMEALHC PRN PO DYSPEPSIA; Start 08/26/16 at 17:30 Magnesium Hydroxide (Milk Of Magnesia) 2,400 mg PRN QHS PRN PO CONSTIPATION; Start 08/26/16 at 17:30 Acetaminophen (Tylenol) 650 mg PRN Q4HRS PRN PO DRY EYE; Start 08/26/16 at 18: 15 Divalproex Sodium (Depakote Sprinkles) 125 mg QID PO Last administered on 19:42; Start 08/26/16 at 21:00 Donepezil HCl (Aricept) 10 mg HS PO Last administered on 08/30/16 19:42; Start 08/26/16 at 21:00 Quetiapine Fumarate (SEROquel) 50 mg TID PO Last administered on 08/28/16 11: 51; Start 08/26/16 at 21:00; Stop 08/28/16 at 19:10; Status DC Albuterol Sulfate (Ventolin Hfa) 2 puff PRN Q4HRS PRN IH WHEEZING; Start at 18:30; Status UNV Atorvastatin Calcium (Lipitor) 10 mg DAILY PO Last administered on 08/28/16 07 :46; Start 08/27/16 at 09:00; Stop 08/28/16 at 14:31; Status DC Calcium Carbonate/ Glycine (Tums) 500 mg PRN Q4HRS PRN PO HEARTBURN / GAS; Start 08/26/16 at 18:30 Docusate Sodium (Colace) 100 mg DAILY PO Last administered on 08/30/16 07:38; Start 08/27/16 at 09:00 Gabapentin (Neurontin) 100 mg TID PO Last administered on 08/30/16 19:42; Start 08/26/16 at 21:00 Magnesium Hydroxide (Milk Of Magnesia) 800 mg DAILY PO Last administered on 07:38; Start 08/27/16 at 09:00 Montelukast Sodium (Singulair) 10 mg DAILY PO Last administered on 08/30/16 07 :39; Start 08/27/16 at 09:00 Fluticasone Propionate (Flonase) 2 spray DAILY NS Last administered on 08:23; Start 08/27/16 at 09:00; Stop 08/27/16 at 15:01; Status DC Albuterol Sulfate (Ventolin) 2.5 mg PRN Q4HRS PRN NEB SHORTNESS OF BREATH; Start 08/26/16 at 18:45 Artificial Tears (Artificial Tears) 1 drop PRN Q15MIN PRN OU DRY EYE; Start at 19:00 Ergocalciferol (Vitamin D2) 50,000 unit WEEKLY PO Last administered on 12:00; Start 08/29/16 at 12:00 Polyethylene Glycol (miraLAX) 17 gm DAILY PO Last administered on 08/30/16 07: 38; Start 08/27/16 at 09:00 Olanzapine (Zyprexa Zydis) 2.5 mg PRN Q2HR PRN PO PSYCHOSIS Last administered on 08/30/16 12:18; Start 08/27/16 at 10:15 Fluticasone Propionate (Flonase) 2 spray DAILY NS Last administered on 07:39; Start 08/27/16 at 15:01 Buspirone HCl (Buspar) 10 mg BID92 PO Last administered on 08/30/16 12:17; Start 08/28/16 at 09:00 Atorvastatin Calcium (Lipitor) 20 mg DAILY PO ; Start 08/29/16 at 09:00; Stop at 09:00; Status DC Prenat Multivit/ Corporate Legal Assistant/Iron/Folic Ac (Multivitamin ) 1 tab DAILY PO Last administered on 08/30/16 07:39; Start 08/29/16 at 09:00 Risperidone (Risperdal) 0.25 mg BID PO Last administered on 08/30/16 19:42; Start 08/28/16 at 21:00 Atorvastatin Calcium (Lipitor) 20 mg HS PO Last administered on 08/30/16 19:42 ; Start 08/29/16 at 21:00 Active Scripts Active Reported Ventolin Hfa Inhaler (Albuterol Sulfate) 18 Gm Hfa.aer.ad 2 Puff IH PRN Q4HRS PRN Seroquel (Quetiapine Fumarate) 50 Mg Tablet 1 Tab PO TID Montelukast Sodium Tablet (Montelukast Sodium) 10 Mg Tablet 10 Mg PO DAILY Milk Of Magnesia (Magnesium Hydroxide) 400 Mg/5 Ml Oral.susp 800 Mg PO DAILY Gabapentin 100 Mg Capsule 100 Mg PO TID Flonase Allergy Relief (Fluticasone Propionate) 9.9 Ml [place].susp 1 Sprays NS DAILY Donepezil Hcl 10 Mg Tablet 1 Tab PO HS Docusate Sodium 100 Mg Capsule 100 Mg PO DAILY Depakote Sprinkle (Divalproex Sodium) 125 Mg Cap.sprink 125 Mg PO QID Tums (Calcium Carbonate) 200 Mg Tab.chew 200 Mg PO PRN Q4HRS PRN Atorvastatin Calcium 10 Mg Tablet 10 Mg PO DAILY Tylenol (Acetaminophen) 325 Mg Tablet 650 Mg PO PRN Q4HRS PRN Diagnosis: Problems: (1) Anxiety disorder (2) Dementia in Alzheimer's disease with delusions (3) Dementia in Alzheimer's disease with depression (4) Dementia, vascular, with delusions (5) Dementia, vascular, with depression (6) Impulse control disorder ISREAL CUEVA MD Aug 30, 2016 20:52
--- NOTE | 2016-08-31 00:29 | NUR ---
Behavior Intervention Response and Plan: BIRP Note: Behavior: Assumed Care of patient, patient located in Hallway at shift change. Patient exhibited the following behavior Wandering, Calm, Disorganized. Brief assessment on rounds of vital signs, medication needs, lab studies, and pain. Treatment plan problems 1-2. Intervention: Patient assessed and the following interventions initiated safety checks 15 Minute Checks Cognitive Assessment , Medications , Nutrition. Response: After interactions and interventions patient responded in the following manner, Calm , Wandering ,Cooperative. Continue to assess behaviors and condition will continue to monitor throughout the shift as needed. 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 Continue to assess patient for changes in above assessment. Monitor for medication needs, pain, and safety concerns. Hourly rounding performed to ensure safe environment.
[2016-08-31 06:49] VITALS: BP 111/56
--- NOTE | 2016-08-31 08:55 | NUR ---
Patient agitated this AM, refused to put shirt on and became combative with care, refused lab draws. PRN zydis 2.5mg given for agitation per Dr. Garcia, will continue to monitor.
--- NOTE | 2016-08-31 08:55 | NUR ---
GEORGE provided clinical review to [place] [employer] [phone] regarding auth # [id number]. Additional days granted thru w/review or dc scheduled for the .
--- NOTE | 2016-08-31 09:42 | NUR ---
SW provided updates to GEORGE Mcgrath.
[2016-08-31] MEDS: MONTELUKAST 10 MG TABLET. PO SCH (10:07)
[2016-08-31] MEDS: risperiDONE 0.25 MG TABLET. PO SCH ×2 (10:07→20:45)
[2016-08-31] MEDS: PRENATAL MULTIVITAMIN TABLET. PO SCH (10:07)
[2016-08-31] MEDS: DOCUSATE SODIUM 100 MG CAPSULE PO SCH (10:07)
[2016-08-31] MEDS: MAGNESIUM HYDROXIDE 2,400 MG/30 ML ORAL.SUSP. PO SCH (10:07)
[2016-08-31] MEDS: POLYETHYLENE GLYCOL 3350 17 GM PACKET. PO SCH (10:08)
[2016-08-31] MEDS: busPIRone 10 MG TABLET. PO SCH ×3 (10:08→20:45)
[2016-08-31] MEDS: DIVALPROEX 125 MG CAP.SPRINK PO SCH ×4 (10:08→20:45)
[2016-08-31] MEDS: GABAPENTIN 100 MG CAPSULE. PO SCH ×3 (10:08→20:45)
[2016-08-31] MEDS: FLUTICASONE 50MCG/NASAL SPRAY 16GM BOTTLE. NS SCH (10:09)
[2016-08-31 10:21] LABS: VAL ACID 32 mcg/mL (50-100)
--- NOTE | 2016-08-31 13:03 | PN ---
DATE: 08/30/2016 PSYCHIATRIC PROGRESS NOTE This is late entry of 08/30/2016, covers elements not covered in my initial note. SUBJECTIVE: The patient is being followed by Dr. Todd from a neurological standpoint. The patient has not cooperated with EEG, resistive with cares, p.r.n. Zyprexa given. REVIEW OF SYSTEMS: No CV, , eye, ENT or pulmonary system symptoms on review. Reliability poor. MENTAL STATUS EXAMINATION: Oriented to himself. Insight, judgment, recent and remote memory, attention, concentration, fund of knowledge poor, consistent with his diagnosis mentioned in my initial note. PLAN: Check valproic acid level in the morning of 08/31/2016, adjust Depakote thereafter, continue Risperdal 0.25 b.i.d., Aricept 10 mg a day, Zyprexa p.r.n. Adjust further as clinically indicated. MAN Javon CUEVA MD DR: TSERING/daniel JOB#: [id number] / [id number]
--- NOTE | 2016-08-31 14:27 | NUR ---
Behavior Intervention Response and Plan: BIRP Note: Behavior: Assumed Care of patient, patient located in Day Room at shift change. Patient exhibited the following behavior Restless, Disorganized, Resistive. Brief assessment on rounds of vital signs, medication needs, lab studies, and pain. Treatment plan problems . Intervention: Patient assessed and the following interventions initiated safety checks 15 Minute Checks Cognitive Assessment , Head to toe Assessment , Medications. Response: After interactions and interventions patient responded in the following manner, Calm , Compliant ,Cooperative. Continue to assess behaviors and condition will continue to monitor throughout the shift as needed. 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 Continue to assess patient for changes in above assessment. Monitor for medication needs, pain, and safety concerns. Hourly rounding performed to ensure safe environment.
[2016-08-31 16:07] VITALS: BP 116/76
[2016-08-31] MEDS: DONEPEZIL HCL 10 MG TABLET PO SCH (20:45)
[2016-08-31] MEDS: ATORVASTATIN CALCIUM 10 MG TABLET. PO SCH (20:45)
--- NOTE | 2016-08-31 23:39 | PDOC ---
Exam Yair Demential Exam: Yair Note: Please also refer to the separate dictated note~for this date of service dictated separately.~Patient seen individually. Discussed the patient with Nursing staff reviewed the chart.~Reviewed interim history and current functioning. Reviewed vital signs,~Labs/ Radiology~and current medications noted below. Continue current treatment with the changes noted in the dictated addendum note Assessment: Vital Signs: Vital Signs Date Time Temp Pulse Resp B/P Pulse Ox O2 Delivery O2 Flow Rate FiO2 08/31/16 16:07 96.7 51 16 116/76 99 I&O Intake and Output 08/31/16 07:00 Intake Total 960 ml Balance 960 ml Intake Oral 960 ml # Bowel Movements 1 Labs: Laboratory Tests Test 08/31/16 09:45 Valproic Acid Level 32mcg/mL (50-100) L Valproic Acid Last Dose Date 08/30/2016 Valproic Acid Last Dose Time 2100 Current Medications: Meds: Current Medications Acetaminophen (Tylenol) 650 mg PRN Q6HRS PRN PO PAIN / TEMP; Start 08/26/16 at 17:30; Stop 08/26/16 at 18:41; Status DC Multi-Ingredient Ointment (Analgesic [place]) 1 heather PRN QID PRN TP MUSCLE PAIN; Start 08/26/16 at 17:30 Al Hydroxide/Mg Hydroxide (Mylanta Plus Xs) 15 ml PRN AFTMEALHC PRN PO DYSPEPSIA; Start 08/26/16 at 17:30 Magnesium Hydroxide (Milk Of Magnesia) 2,400 mg PRN QHS PRN PO CONSTIPATION; Start 08/26/16 at 17:30 Acetaminophen (Tylenol) 650 mg PRN Q4HRS PRN PO DRY EYE; Start 08/26/16 at 18: 15 Divalproex Sodium (Depakote Sprinkles) 125 mg QID PO Last administered on 16:38; Start 08/26/16 at 21:00; Stop 08/31/16 at 18:20; Status DC Donepezil HCl (Aricept) 10 mg HS PO Last administered on 08/31/16 20:45; Start 08/26/16 at 21:00 Quetiapine Fumarate (SEROquel) 50 mg TID PO Last administered on 08/28/16 11: 51; Start 08/26/16 at 21:00; Stop 08/28/16 at 19:10; Status DC Albuterol Sulfate (Ventolin Hfa) 2 puff PRN Q4HRS PRN IH WHEEZING; Start at 18:30; Status UNV Atorvastatin Calcium (Lipitor) 10 mg DAILY PO Last administered on 08/28/16 07 :46; Start 08/27/16 at 09:00; Stop 08/28/16 at 14:31; Status DC Calcium Carbonate/ Glycine (Tums) 500 mg PRN Q4HRS PRN PO HEARTBURN / GAS; Start 08/26/16 at 18:30 Docusate Sodium (Colace) 100 mg DAILY PO Last administered on 08/31/16 10:07; Start 08/27/16 at 09:00 Gabapentin (Neurontin) 100 mg TID PO Last administered on 08/31/16 20:45; Start 08/26/16 at 21:00 Magnesium Hydroxide (Milk Of Magnesia) 800 mg DAILY PO Last administered on 10:07; Start 08/27/16 at 09:00 Montelukast Sodium (Singulair) 10 mg DAILY PO Last administered on 08/31/16 10 :07; Start 08/27/16 at 09:00 Fluticasone Propionate (Flonase) 2 spray DAILY NS Last administered on 08:23; Start 08/27/16 at 09:00; Stop 08/27/16 at 15:01; Status DC Albuterol Sulfate (Ventolin) 2.5 mg PRN Q4HRS PRN NEB SHORTNESS OF BREATH; Start 08/26/16 at 18:45 Artificial Tears (Artificial Tears) 1 drop PRN Q15MIN PRN OU DRY EYE; Start at 19:00 Ergocalciferol (Vitamin D2) 50,000 unit WEEKLY PO Last administered on 12:00; Start 08/29/16 at 12:00 Polyethylene Glycol (miraLAX) 17 gm DAILY PO Last administered on 08/31/16 10: 08; Start 08/27/16 at 09:00 Olanzapine (Zyprexa Zydis) 2.5 mg PRN Q2HR PRN PO PSYCHOSIS Last administered on 08/31/16 08:51; Start 08/27/16 at 10:15 Fluticasone Propionate (Flonase) 2 spray DAILY NS Last administered on 10:09; Start 08/27/16 at 15:01 Buspirone HCl (Buspar) 10 mg BID92 PO Last administered on 08/30/16 12:17; Start 08/28/16 at 09:00; Stop 08/31/16 at 08:59; Status DC Atorvastatin Calcium (Lipitor) 20 mg DAILY PO ; Start 08/29/16 at 09:00; Stop at 09:00; Status DC Prenat Multivit/ [place]/Iron/Folic Ac (Multivitamin ) 1 tab DAILY PO Last administered on 08/31/16 10:07; Start 08/29/16 at 09:00 Risperidone (Risperdal) 0.25 mg BID PO Last administered on 08/31/16 20:45; Start 08/28/16 at 21:00 Atorvastatin Calcium (Lipitor) 20 mg HS PO Last administered on 08/31/16 20:45 ; Start 08/29/16 at 21:00 Buspirone HCl (Buspar) 10 mg TID PO Last administered on 08/31/16 20:45; Start 08/31/16 at 09:00 Divalproex Sodium (Depakote Sprinkles) 250 mg TID PO Last administered on 20:45; Start 08/31/16 at 21:00 Active Scripts Active Reported Ventolin Hfa Inhaler (Albuterol Sulfate) 18 Gm Hfa.aer.ad 2 Puff IH PRN Q4HRS PRN Seroquel (Quetiapine Fumarate) 50 Mg Tablet 1 Tab PO TID Montelukast Sodium Tablet (Montelukast Sodium) 10 Mg Tablet 10 Mg PO DAILY Milk Of Magnesia (Magnesium Hydroxide) 400 Mg/5 Ml Oral.susp 800 Mg PO DAILY Gabapentin 100 Mg Capsule 100 Mg PO TID Flonase Allergy Relief (Fluticasone Propionate) 9.9 Ml [place].susp 1 Sprays NS DAILY Donepezil Hcl 10 Mg Tablet 1 Tab PO HS Docusate Sodium 100 Mg Capsule 100 Mg PO DAILY Depakote Sprinkle (Divalproex Sodium) 125 Mg Cap.sprink 125 Mg PO QID Tums (Calcium Carbonate) 200 Mg Tab.chew 200 Mg PO PRN Q4HRS PRN Atorvastatin Calcium 10 Mg Tablet 10 Mg PO DAILY Tylenol (Acetaminophen) 325 Mg Tablet 650 Mg PO PRN Q4HRS PRN Diagnosis: Problems: (1) Anxiety disorder (2) Dementia in Alzheimer's disease with delusions (3) Dementia in Alzheimer's disease with depression (4) Dementia, vascular, with delusions (5) Dementia, vascular, with depression (6) Impulse control disorder ISREAL CUEVA MD Aug 31, 2016 23:39
--- NOTE | 2016-09-01 03:15 | NUR ---
Behavior Intervention Response and Plan: BIRP Note: Behavior: Assumed Care of patient, patient located in Day Room at shift change. Patient exhibited the following behavior Calm, Disorganized, Compliant. Brief assessment on rounds of vital signs, medication needs, lab studies, and pain. Treatment plan problems Dementia with BD and Fall Risk. Intervention: Patient assessed and the following interventions initiated safety checks 15 Minute Checks Cognitive Assessment , Head to toe Assessment , Medications. Response: After interactions and interventions patient responded in the following manner, Calm , Disorganized ,Cooperative. Continue to assess behaviors and condition will continue to monitor throughout the shift as needed. 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 Continue to assess patient for changes in above assessment. Monitor for medication needs, pain, and safety concerns. Hourly rounding performed to ensure safe environment.
[2016-09-01 06:07] VITALS: BP 108/74
[2016-09-01] MEDS: MONTELUKAST 10 MG TABLET. PO SCH (09:12)
[2016-09-01] MEDS: DIVALPROEX 125 MG CAP.SPRINK PO SCH ×3 (09:12→19:42)
[2016-09-01] MEDS: MAGNESIUM HYDROXIDE 2,400 MG/30 ML ORAL.SUSP. PO SCH (09:12)
[2016-09-01] MEDS: DOCUSATE SODIUM 100 MG CAPSULE PO SCH (09:12)
[2016-09-01] MEDS: GABAPENTIN 100 MG CAPSULE. PO SCH ×3 (09:12→19:42)
[2016-09-01] MEDS: POLYETHYLENE GLYCOL 3350 17 GM PACKET. PO SCH (09:12)
[2016-09-01] MEDS: busPIRone 10 MG TABLET. PO SCH ×3 (09:12→19:43)
[2016-09-01] MEDS: FLUTICASONE 50MCG/NASAL SPRAY 16GM BOTTLE. NS SCH (09:12)
[2016-09-01] MEDS: PRENATAL MULTIVITAMIN TABLET. PO SCH (09:12)
[2016-09-01] MEDS: risperiDONE 0.25 MG TABLET. PO SCH ×2 (09:13→19:41)
--- NOTE | 2016-09-01 09:50 | NUR ---
SW tried to call DPOA again, left message for her to return call. GEORGE unable to complete PSA with pt due to Dementia dx.
--- NOTE | 2016-09-01 10:00 | NUR ---
THERAPEUTIC RECREATION GROUP NOTE TITLE :[employer] and [employer] Teacher Art ACTIVITY : Arts and Crafts GOAL : Increase socialization, fine motor skills, creativity DURATION : 30 minutes RESPONSE : No participation. Addendum: 09/02/16 at 1158 by STEVEN HERRERA ACT Category entered incorrectly. Steven Herrera is Support Services.
--- NOTE | 2016-09-01 11:15 | NUR ---
THERAPEUTIC RECREATION GROUP NOTE TITLE :Movement to Music: Flexibility ACTIVITY : Movement/ Exercise GOAL : Increase morale, attention, flexibility. Decrease stress/anxiety. DURATION : 40 Minutes RESPONSE : No participation.
--- NOTE | 2016-09-01 13:17 | NUR ---
Behavior Intervention Response and Plan: BIRP Note: Behavior: Assumed Care of patient, patient located in Dining Room at shift change. Patient exhibited the following behavior Wandering, Disorganized, Compliant. Brief assessment on rounds of vital signs, medication needs, lab studies, and pain. Treatment plan problems . Intervention: Patient assessed and the following interventions initiated safety checks 15 Minute Checks Cognitive Assessment , Head to toe Assessment , Medications. Response: After interactions and interventions patient responded in the following manner, Calm , Compliant ,Cooperative. Continue to assess behaviors and condition will continue to monitor throughout the shift as needed. 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 Continue to assess patient for changes in above assessment. Monitor for medication needs, pain, and safety concerns. Hourly rounding performed to ensure safe environment.
--- NOTE | 2016-09-01 14:00 | NUR ---
THERAPEUTIC RECREATION GROUP NOTE TITLE :Sing along with [employer] ACTIVITY : Music GOAL : Increase socialization, elevate mood, stimulate memory DURATION : 60 Minutes RESPONSE : No participation.
[2016-09-01 16:06] VITALS: BP 117/70
[2016-09-01] MEDS: ATORVASTATIN CALCIUM 10 MG TABLET. PO SCH (19:41)
[2016-09-01] MEDS: DONEPEZIL HCL 10 MG TABLET PO SCH (19:42)
--- NOTE | 2016-09-01 21:37 | PDOC ---
Exam Yair Demential Exam: Yair Note: Please also refer to the separate dictated note~for this date of service dictated separately.~Patient seen individually. Discussed the patient with Nursing staff reviewed the chart.~Reviewed interim history and current functioning. Reviewed vital signs,~Labs/ Radiology~and current medications noted below. Continue current treatment with the changes noted in the dictated addendum note Assessment: Vital Signs: Vital Signs Date Time Temp Pulse Resp B/P Pulse Ox O2 Delivery O2 Flow Rate FiO2 09/01/16 16:06 97.9 84 18 117/70 96 I&O Intake and Output 09/01/16 07:00 Intake Total 240 ml Balance 240 ml Intake Oral 240 ml Current Medications: Meds: Current Medications Acetaminophen (Tylenol) 650 mg PRN Q6HRS PRN PO PAIN / TEMP; Start 08/26/16 at 17:30; Stop 08/26/16 at 18:41; Status DC Multi-Ingredient Ointment (Analgesic [place]) 1 heather PRN QID PRN TP MUSCLE PAIN; Start 08/26/16 at 17:30 Al Hydroxide/Mg Hydroxide (Mylanta Plus Xs) 15 ml PRN AFTMEALHC PRN PO DYSPEPSIA; Start 08/26/16 at 17:30 Magnesium Hydroxide (Milk Of Magnesia) 2,400 mg PRN QHS PRN PO CONSTIPATION; Start 08/26/16 at 17:30 Acetaminophen (Tylenol) 650 mg PRN Q4HRS PRN PO DRY EYE; Start 08/26/16 at 18: 15 Divalproex Sodium (Depakote Sprinkles) 125 mg QID PO Last administered on 16:38; Start 08/26/16 at 21:00; Stop 08/31/16 at 18:20; Status DC Donepezil HCl (Aricept) 10 mg HS PO Last administered on 09/01/16 19:42; Start 08/26/16 at 21:00 Quetiapine Fumarate (SEROquel) 50 mg TID PO Last administered on 08/28/16 11: 51; Start 08/26/16 at 21:00; Stop 08/28/16 at 19:10; Status DC Albuterol Sulfate (Ventolin Hfa) 2 puff PRN Q4HRS PRN IH WHEEZING; Start at 18:30; Status UNV Atorvastatin Calcium (Lipitor) 10 mg DAILY PO Last administered on 08/28/16 07 :46; Start 08/27/16 at 09:00; Stop 08/28/16 at 14:31; Status DC Calcium Carbonate/ Glycine (Tums) 500 mg PRN Q4HRS PRN PO HEARTBURN / GAS; Start 08/26/16 at 18:30 Docusate Sodium (Colace) 100 mg DAILY PO Last administered on 09/01/16 09:12; Start 08/27/16 at 09:00 Gabapentin (Neurontin) 100 mg TID PO Last administered on 09/01/16 19:42; Start 08/26/16 at 21:00 Magnesium Hydroxide (Milk Of Magnesia) 800 mg DAILY PO Last administered on 09:12; Start 08/27/16 at 09:00 Montelukast Sodium (Singulair) 10 mg DAILY PO Last administered on 09/01/16 09 :12; Start 08/27/16 at 09:00 Fluticasone Propionate (Flonase) 2 spray DAILY NS Last administered on 08:23; Start 08/27/16 at 09:00; Stop 08/27/16 at 15:01; Status DC Albuterol Sulfate (Ventolin) 2.5 mg PRN Q4HRS PRN NEB SHORTNESS OF BREATH; Start 08/26/16 at 18:45 Artificial Tears (Artificial Tears) 1 drop PRN Q15MIN PRN OU DRY EYE; Start at 19:00 Ergocalciferol (Vitamin D2) 50,000 unit WEEKLY PO Last administered on 12:00; Start 08/29/16 at 12:00 Polyethylene Glycol (miraLAX) 17 gm DAILY PO Last administered on 09/01/16 09: 12; Start 08/27/16 at 09:00 Olanzapine (Zyprexa Zydis) 2.5 mg PRN Q2HR PRN PO PSYCHOSIS Last administered on 08/31/16 08:51; Start 08/27/16 at 10:15 Fluticasone Propionate (Flonase) 2 spray DAILY NS Last administered on 09:12; Start 08/27/16 at 15:01 Buspirone HCl (Buspar) 10 mg BID92 PO Last administered on 08/30/16 12:17; Start 08/28/16 at 09:00; Stop 08/31/16 at 08:59; Status DC Atorvastatin Calcium (Lipitor) 20 mg DAILY PO ; Start 08/29/16 at 09:00; Stop at 09:00; Status DC Prenat Multivit/ [place]/Iron/Folic Ac (Multivitamin ) 1 tab DAILY PO Last administered on 09/01/16 09:12; Start 08/29/16 at 09:00 Risperidone (Risperdal) 0.25 mg BID PO Last administered on 09/01/16 19:41; Start 08/28/16 at 21:00 Atorvastatin Calcium (Lipitor) 20 mg HS PO Last administered on 09/01/16 19:41 ; Start 08/29/16 at 21:00 Buspirone HCl (Buspar) 10 mg TID PO Last administered on 09/01/16 19:43; Start 08/31/16 at 09:00 Divalproex Sodium (Depakote Sprinkles) 250 mg TID PO Last administered on 19:42; Start 08/31/16 at 21:00 Active Scripts Active Reported Ventolin Hfa Inhaler (Albuterol Sulfate) 18 Gm Hfa.aer.ad 2 Puff IH PRN Q4HRS PRN Seroquel (Quetiapine Fumarate) 50 Mg Tablet 1 Tab PO TID Montelukast Sodium Tablet (Montelukast Sodium) 10 Mg Tablet 10 Mg PO DAILY Milk Of Magnesia (Magnesium Hydroxide) 400 Mg/5 Ml [place].susp 800 Mg PO DAILY Gabapentin 100 Mg Capsule 100 Mg PO TID Flonase Allergy Relief (Fluticasone Propionate) 9.9 Ml [place].susp 1 Sprays NS DAILY Donepezil Hcl 10 Mg Tablet 1 Tab PO HS Docusate Sodium 100 Mg Capsule 100 Mg PO DAILY Depakote Sprinkle (Divalproex Sodium) 125 Mg Cap.sprink 125 Mg PO QID Tums (Calcium Carbonate) 200 Mg Tab.chew 200 Mg PO PRN Q4HRS PRN Atorvastatin Calcium 10 Mg Tablet 10 Mg PO DAILY Tylenol (Acetaminophen) 325 Mg Tablet 650 Mg PO PRN Q4HRS PRN Diagnosis: Problems: (1) Anxiety disorder (2) Dementia in Alzheimer's disease with delusions (3) Dementia in Alzheimer's disease with depression (4) Dementia, vascular, with delusions (5) Dementia, vascular, with depression (6) Impulse control disorder ISREAL CUEVA MD Sep 01, 2016 21:37
--- NOTE | 2016-09-02 01:18 | NUR ---
Behavior Intervention Response and Plan: BIRP Note: Behavior: Assumed Care of patient, patient located in Day Room at shift change. Patient exhibited the following behavior Calm, Compliant, Cooperative. Brief assessment on rounds of vital signs, medication needs, lab studies, and pain. Treatment plan problems Dementia with BD and Fall Risk. Intervention: Patient assessed and the following interventions initiated safety checks 15 Minute Checks Cognitive Assessment , Head to toe Assessment , Medications. Response: After interactions and interventions patient responded in the following manner, Calm , Compliant ,Cooperative. Continue to assess behaviors and condition will continue to monitor throughout the shift as needed. 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 Continue to assess patient for changes in above assessment. Monitor for medication needs, pain, and safety concerns. Hourly rounding performed to ensure safe environment.
--- NOTE | 2016-09-02 02:14 | PN ---
DATE: 08/31/2016 This is a late entry for 08/31/2016, covers the elements not covered in my initial note. The patient was agitated in the morning, resistive to cares. Anxious, restless, confused, ambulates on his own. REVIEW OF SYSTEMS: No CV, , pulmonary, eye system symptoms on review. Reliability poor. MENTAL STATUS EXAM: Oriented to himself. Insight, judgment, recent and remote memory, attention, concentration, fund of knowledge poor, consistent with his diagnosis. LABORATORY DATA: Valproic acid level is 32 on current dosage, Depakote 125 four times a day. IMPRESSION: Major neurocognitive disorder, Alzheimer, vascular with depression, delusion, behavioral disturbance. Rest unchanged. PLAN: Increase Depakote from 125 four times a day to 250 three times a day. Check labs level in 3 days. Maintain Risperdal, Aricept, Zyprexa p.r.n., BuSpar increased to 10 mg 3 times a day for his anxiety. ISREAL CUEVA MD DR: TSERING/daniel JOB#: [id number] / [id number]
[2016-09-02 06:25] VITALS: BP 125/62
[2016-09-02] MEDS: FLUTICASONE 50MCG/NASAL SPRAY 16GM BOTTLE. NS SCH ×2 (08:52→09:00)
[2016-09-02] MEDS: MAGNESIUM HYDROXIDE 2,400 MG/30 ML ORAL.SUSP. PO SCH (08:53)
[2016-09-02] MEDS: GABAPENTIN 100 MG CAPSULE. PO SCH ×3 (08:53→20:22)
[2016-09-02] MEDS: DOCUSATE SODIUM 100 MG CAPSULE PO SCH (08:53)
[2016-09-02] MEDS: busPIRone 10 MG TABLET. PO SCH ×3 (08:54→20:21)
[2016-09-02] MEDS: PRENATAL MULTIVITAMIN TABLET. PO SCH (08:54)
[2016-09-02] MEDS: MONTELUKAST 10 MG TABLET. PO SCH (08:54)
[2016-09-02] MEDS: POLYETHYLENE GLYCOL 3350 17 GM PACKET. PO SCH (08:54)
[2016-09-02] MEDS: DIVALPROEX 125 MG CAP.SPRINK PO SCH ×3 (08:54→20:21)
[2016-09-02] MEDS: risperiDONE 0.25 MG TABLET. PO SCH ×2 (08:54→20:22)
--- NOTE | 2016-09-02 09:00 | NUR ---
Patient wandering hallways, pacing and going in and out of other patient's rooms. He has been punching doors and windows, appears agitated. Nurse able to redirect him to [facility] without issues so he could be in isolation for safety, will continue to monitor.
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
[2016-09-02 15:50] VITALS: BP 117/78
[2016-09-02] MEDS: DONEPEZIL HCL 10 MG TABLET PO SCH (20:21)
[2016-09-02] MEDS: MIRTAZAPINE 7.5 MG TABLET. PO SCH (20:21)
[2016-09-02] MEDS: ATORVASTATIN CALCIUM 10 MG TABLET. PO SCH (20:22)
--- NOTE | 2016-09-02 21:02 | PDOC ---
Exam Yair Demential Exam: Yair Note: Please also refer to the separate dictated note~for this date of service dictated separately.~Patient seen individually. Discussed the patient with Nursing staff reviewed the chart.~Reviewed interim history and current functioning. Reviewed vital signs,~Labs/ Radiology~and current medications noted below. Continue current treatment with the changes noted in the dictated addendum note Assessment: Vital Signs: Vital Signs Date Time Temp Pulse Resp B/P Pulse Ox O2 Delivery O2 Flow Rate FiO2 09/02/16 15:50 97.9 78 20 117/78 97 I&O Intake and Output 09/02/16 07:00 Intake Total 720 ml Balance 720 ml Intake Oral 720 ml Current Medications: Meds: Current Medications Acetaminophen (Tylenol) 650 mg PRN Q6HRS PRN PO PAIN / TEMP; Start 08/26/16 at 17:30; Stop 08/26/16 at 18:41; Status DC Multi-Ingredient Ointment (Analgesic [place]) 1 heather PRN QID PRN TP MUSCLE PAIN; Start 08/26/16 at 17:30 Al Hydroxide/Mg Hydroxide (Mylanta Plus Xs) 15 ml PRN AFTMEALHC PRN PO DYSPEPSIA; Start 08/26/16 at 17:30 Magnesium Hydroxide (Milk Of Magnesia) 2,400 mg PRN QHS PRN PO CONSTIPATION; Start 08/26/16 at 17:30 Acetaminophen (Tylenol) 650 mg PRN Q4HRS PRN PO DRY EYE; Start 08/26/16 at 18: 15 Divalproex Sodium (Depakote Sprinkles) 125 mg QID PO Last administered on 16:38; Start 08/26/16 at 21:00; Stop 08/31/16 at 18:20; Status DC Donepezil HCl (Aricept) 10 mg HS PO Last administered on 09/02/16 20:21; Start 08/26/16 at 21:00 Quetiapine Fumarate (SEROquel) 50 mg TID PO Last administered on 08/28/16 11: 51; Start 08/26/16 at 21:00; Stop 08/28/16 at 19:10; Status DC Albuterol Sulfate (Ventolin Hfa) 2 puff PRN Q4HRS PRN IH WHEEZING; Start at 18:30; Status UNV Atorvastatin Calcium (Lipitor) 10 mg DAILY PO Last administered on 08/28/16 07 :46; Start 08/27/16 at 09:00; Stop 08/28/16 at 14:31; Status DC Calcium Carbonate/ Glycine (Tums) 500 mg PRN Q4HRS PRN PO HEARTBURN / GAS; Start 08/26/16 at 18:30 Docusate Sodium (Colace) 100 mg DAILY PO Last administered on 09/02/16 08:53; Start 08/27/16 at 09:00 Gabapentin (Neurontin) 100 mg TID PO Last administered on 09/02/16 20:22; Start 08/26/16 at 21:00 Magnesium Hydroxide (Milk Of Magnesia) 800 mg DAILY PO Last administered on 08:53; Start 08/27/16 at 09:00 Montelukast Sodium (Singulair) 10 mg DAILY PO Last administered on 09/02/16 08 :54; Start 08/27/16 at 09:00 Fluticasone Propionate (Flonase) 2 spray DAILY NS Last administered on 08:23; Start 08/27/16 at 09:00; Stop 08/27/16 at 15:01; Status DC Albuterol Sulfate (Ventolin) 2.5 mg PRN Q4HRS PRN NEB SHORTNESS OF BREATH; Start 08/26/16 at 18:45 Artificial Tears (Artificial Tears) 1 drop PRN Q15MIN PRN OU DRY EYE; Start at 19:00 Ergocalciferol (Vitamin D2) 50,000 unit WEEKLY PO Last administered on 12:00; Start 08/29/16 at 12:00 Polyethylene Glycol (miraLAX) 17 gm DAILY PO Last administered on 09/02/16 08: 54; Start 08/27/16 at 09:00 Olanzapine (Zyprexa Zydis) 2.5 mg PRN Q2HR PRN PO PSYCHOSIS Last administered on 08/31/16 08:51; Start 08/27/16 at 10:15 Fluticasone Propionate (Flonase) 2 spray DAILY NS Last administered on 09:12; Start 08/27/16 at 15:01 Buspirone HCl (Buspar) 10 mg BID92 PO Last administered on 08/30/16 12:17; Start 08/28/16 at 09:00; Stop 08/31/16 at 08:59; Status DC Atorvastatin Calcium (Lipitor) 20 mg DAILY PO ; Start 08/29/16 at 09:00; Stop at 09:00; Status DC Prenat Multivit/ [place]/Iron/Folic Ac (Multivitamin ) 1 tab DAILY PO Last administered on 09/02/16 08:54; Start 08/29/16 at 09:00 Risperidone (Risperdal) 0.25 mg BID PO Last administered on 09/02/16 20:22; Start 08/28/16 at 21:00 Atorvastatin Calcium (Lipitor) 20 mg HS PO Last administered on 09/02/16 20:22 ; Start 08/29/16 at 21:00 Buspirone HCl (Buspar) 10 mg TID PO Last administered on 09/02/16 20:21; Start 08/31/16 at 09:00 Divalproex Sodium (Depakote Sprinkles) 250 mg TID PO Last administered on 20:21; Start 08/31/16 at 21:00 Mirtazapine (Remeron) 7.5 mg QHS PO Last administered on 09/02/16 20:21; Start 09/02/16 at 21:00 Active Scripts Active Reported Ventolin Hfa Inhaler (Albuterol Sulfate) 18 Gm Hfa.aer.ad 2 Puff IH PRN Q4HRS PRN Seroquel (Quetiapine Fumarate) 50 Mg Tablet 1 Tab PO TID Montelukast Sodium Tablet (Montelukast Sodium) 10 Mg Tablet 10 Mg PO DAILY Milk Of Magnesia (Magnesium Hydroxide) 400 Mg/5 Ml Oral.susp 800 Mg PO DAILY Gabapentin 100 Mg Capsule 100 Mg PO TID Flonase Allergy Relief (Fluticasone Propionate) 9.9 Ml [place].susp 1 Sprays NS DAILY Donepezil Hcl 10 Mg Tablet 1 Tab PO HS Docusate Sodium 100 Mg Capsule 100 Mg PO DAILY Depakote Sprinkle (Divalproex Sodium) 125 Mg Cap.sprink 125 Mg PO QID Tums (Calcium Carbonate) 200 Mg Tab.chew 200 Mg PO PRN Q4HRS PRN Atorvastatin Calcium 10 Mg Tablet 10 Mg PO DAILY Tylenol (Acetaminophen) 325 Mg Tablet 650 Mg PO PRN Q4HRS PRN Diagnosis: Problems: (1) Anxiety disorder (2) Dementia in Alzheimer's disease with delusions (3) Dementia in Alzheimer's disease with depression (4) Dementia, vascular, with delusions (5) Dementia, vascular, with depression (6) Impulse control disorder ISREAL CUEVA MD Sep 02, 2016 21:02
--- NOTE | 2016-09-02 23:55 | NUR ---
Behavior Intervention Response and Plan: BIRP Note: Behavior: Assumed Care of patient, patient located in Day Room at shift change. Patient exhibited the following behavior Calm, Disorganized, Withdrawn. Brief assessment on rounds of vital signs, medication needs, lab studies, and pain. Treatment plan problems Dementia with BD and Fall Risk. Intervention: Patient assessed and the following interventions initiated safety checks 15 Minute Checks Cognitive Assessment , Head to toe Assessment , Medications. Response: After interactions and interventions patient responded in the following manner, Calm , Disorganized ,Cooperative. Continue to assess behaviors and condition will continue to monitor throughout the shift as needed. Plan: Continue to monitor Master Treatment Plan for patient's progress toward short term goals of Decreased Agitation, Decreased Aggression, laborer marine terminal goals to return to previous living setting vs placement. Continue to assess patient for changes in above assessment. Monitor for medication needs, pain, and safety concerns. Hourly rounding performed to ensure safe environment.
--- NOTE | 2016-09-03 03:11 | PN ---
DATE: 09/01/2016 PSYCHIATRIC PROGRESS NOTE This is a late entry for 09/01/2016, covers the elements not covered in my initial note. SUBJECTIVE: The patient remains confused, a little bit calmer, withdrawn, wanders the hallways, resistive with his meals, made a gesture that he is going to punch a nursing, he had never followed through. REVIEW OF SYSTEMS: No CV, , pulmonary, eye, ENT system symptoms on review. Reliability poor. MENTAL STATUS EXAM: Oriented to himself. Insight, judgment, recent and remote memory, attention, concentration, fund of knowledge poor, consistent with his diagnosis mentioned in my initial note. PLAN: Maintain Risperdal 0.25 b.i.d., Aricept 10 mg a day, Depakote 250 t.i.d., Zyprexa p.r.n., BuSpar 10 t.i.d. Depakote was recently increased with labs level due back on 09/04/2016 and we will adjust it further thereafter to reach a therapeutic level. MAN Javon CUEVA MD DR: TSERING/daniel JOB#: [id number] / [id number]
[2016-09-03 06:34] VITALS: BP 102/56
--- NOTE | 2016-09-03 08:44 | NUR ---
SW called had to leave a message regarding review.
[2016-09-03] MEDS: POLYETHYLENE GLYCOL 3350 17 GM PACKET. PO SCH (09:14)
[2016-09-03] MEDS: busPIRone 10 MG TABLET. PO SCH ×3 (09:14→19:41)
[2016-09-03] MEDS: MONTELUKAST 10 MG TABLET. PO SCH (09:14)
[2016-09-03] MEDS: MAGNESIUM HYDROXIDE 2,400 MG/30 ML ORAL.SUSP. PO SCH (09:14)
[2016-09-03] MEDS: DOCUSATE SODIUM 100 MG CAPSULE PO SCH (09:14)
[2016-09-03] MEDS: risperiDONE 0.25 MG TABLET. PO SCH ×2 (09:14→19:41)
[2016-09-03] MEDS: PRENATAL MULTIVITAMIN TABLET. PO SCH (09:15)
[2016-09-03] MEDS: DIVALPROEX 125 MG CAP.SPRINK PO SCH ×3 (09:15→19:41)
[2016-09-03] MEDS: FLUTICASONE 50MCG/NASAL SPRAY 16GM BOTTLE. NS SCH (09:15)
[2016-09-03] MEDS: GABAPENTIN 100 MG CAPSULE. PO SCH ×3 (09:15→19:40)
--- NOTE | 2016-09-03 09:30 | NUR ---
Behavior Intervention Response and Plan: BIRP Note: Behavior: Assumed Care of patient, patient located in Day Room at shift change. Patient exhibited the following behavior Calm, Disorganized, Cooperative. Brief assessment on rounds of vital signs, medication needs, lab studies, and pain. Treatment plan problems 1 & 2. Intervention: Patient assessed and the following interventions initiated safety checks 15 Minute Checks Cognitive Assessment , Head to toe Assessment , Medications. Response: After interactions and interventions patient responded in the following manner, Calm , Compliant ,Cooperative. Continue to assess behaviors and condition will continue to monitor throughout the shift as needed. 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 Continue to assess patient for changes in above assessment. Monitor for medication needs, pain, and safety concerns. Hourly rounding performed to ensure safe environment.
--- NOTE | 2016-09-03 11:15 | NUR ---
THERAPEUTIC RECREATION GROUP NOTE TITLE :Movement to Music: Flexibility ACTIVITY : Movement/ Exercise GOAL : Increase morale, attention, flexibility. Decrease stress/anxiety. DURATION : 40 Minutes RESPONSE : No participation. Pt. stayed in the same room the entire time but did not follow the moves.
--- NOTE | 2016-09-03 11:29 | NUR ---
SW provided review on 09/03/16 to [phone]. Pt was authed through -09/05 with update due on 09/06. Auth number remains the same [id number].
--- NOTE | 2016-09-03 14:00 | NUR ---
THERAPEUTIC RECREATION GROUP NOTE TITLE :Balloon Bop with Noodles ACTIVITY : Activities and Games GOAL : Increase socialization and alertness. Maintain/improve mental and physical functioning. DURATION : 30 minutes RESPONSE : Full participation. Pt. was alert and focused the entire time. He appropriately used the pool noodle to hit the balloon. He sat most of the time as he participated but got up and walked around to hit the balloon as the activity progressed. He had a grin on his face most of the time and smiled twice. He was playful, he pretended he was going to tap a sleeping patient with the noodle as he grinned but he only used the noodle to hit the balloon. He passed the balloon to others and handed in the equipment at the end without prompting or delay.
[2016-09-03] MEDS: ATORVASTATIN CALCIUM 10 MG TABLET. PO SCH (19:40)
[2016-09-03] MEDS: MIRTAZAPINE 7.5 MG TABLET. PO SCH (19:41)
[2016-09-03] MEDS: DONEPEZIL HCL 10 MG TABLET PO SCH (19:41)
--- NOTE | 2016-09-03 21:06 | PDOC ---
Exam Yair Demential Exam: Yair Note: Please also refer to the separate dictated note~for this date of service dictated separately.~Patient seen individually. Discussed the patient with Nursing staff reviewed the chart.~Reviewed interim history and current functioning. Reviewed vital signs,~Labs/ Radiology~and current medications noted below. Continue current treatment with the changes noted in the dictated addendum note Assessment: Vital Signs: Vital Signs Date Time Temp Pulse Resp B/P Pulse Ox O2 Delivery O2 Flow Rate FiO2 09/03/16 15:46 97.5 95 18 97 09/03/16 06:34 102/56 I&O Intake and Output 09/03/16 07:00 Intake Total 720 ml Balance 720 ml Intake Oral 720 ml Current Medications: Meds: Current Medications Acetaminophen (Tylenol) 650 mg PRN Q6HRS PRN PO PAIN / TEMP; Start 08/26/16 at 17:30; Stop 08/26/16 at 18:41; Status DC Multi-Ingredient Ointment (Analgesic [place]) 1 heather PRN QID PRN TP MUSCLE PAIN; Start 08/26/16 at 17:30 Al Hydroxide/Mg Hydroxide (Mylanta Plus Xs) 15 ml PRN AFTMEALHC PRN PO DYSPEPSIA; Start 08/26/16 at 17:30 Magnesium Hydroxide (Milk Of Magnesia) 2,400 mg PRN QHS PRN PO CONSTIPATION; Start 08/26/16 at 17:30 Acetaminophen (Tylenol) 650 mg PRN Q4HRS PRN PO DRY EYE; Start 08/26/16 at 18: 15 Divalproex Sodium (Depakote Sprinkles) 125 mg QID PO Last administered on 16:38; Start 08/26/16 at 21:00; Stop 08/31/16 at 18:20; Status DC Donepezil HCl (Aricept) 10 mg HS PO Last administered on 09/03/16 19:41; Start 08/26/16 at 21:00 Quetiapine Fumarate (SEROquel) 50 mg TID PO Last administered on 08/28/16 11: 51; Start 08/26/16 at 21:00; Stop 08/28/16 at 19:10; Status DC Albuterol Sulfate (Ventolin Hfa) 2 puff PRN Q4HRS PRN IH WHEEZING; Start at 18:30; Status UNV Atorvastatin Calcium (Lipitor) 10 mg DAILY PO Last administered on 08/28/16 07 :46; Start 08/27/16 at 09:00; Stop 08/28/16 at 14:31; Status DC Calcium Carbonate/ Glycine (Tums) 500 mg PRN Q4HRS PRN PO HEARTBURN / GAS; Start 08/26/16 at 18:30 Docusate Sodium (Colace) 100 mg DAILY PO Last administered on 09/03/16 09:14; Start 08/27/16 at 09:00 Gabapentin (Neurontin) 100 mg TID PO Last administered on 09/03/16 19:40; Start 08/26/16 at 21:00 Magnesium Hydroxide (Milk Of Magnesia) 800 mg DAILY PO Last administered on 09:14; Start 08/27/16 at 09:00 Montelukast Sodium (Singulair) 10 mg DAILY PO Last administered on 09/03/16 09 :14; Start 08/27/16 at 09:00 Fluticasone Propionate (Flonase) 2 spray DAILY NS Last administered on 08:23; Start 08/27/16 at 09:00; Stop 08/27/16 at 15:01; Status DC Albuterol Sulfate (Ventolin) 2.5 mg PRN Q4HRS PRN NEB SHORTNESS OF BREATH; Start 08/26/16 at 18:45 Artificial Tears (Artificial Tears) 1 drop PRN Q15MIN PRN OU DRY EYE; Start at 19:00 Ergocalciferol (Vitamin D2) 50,000 unit WEEKLY PO Last administered on 12:00; Start 08/29/16 at 12:00 Polyethylene Glycol (miraLAX) 17 gm DAILY PO Last administered on 09/03/16 09: 14; Start 08/27/16 at 09:00 Olanzapine (Zyprexa Zydis) 2.5 mg PRN Q2HR PRN PO PSYCHOSIS Last administered on 08/31/16 08:51; Start 08/27/16 at 10:15 Fluticasone Propionate (Flonase) 2 spray DAILY NS Last administered on 09:15; Start 08/27/16 at 15:01 Buspirone HCl (Buspar) 10 mg BID92 PO Last administered on 08/30/16 12:17; Start 08/28/16 at 09:00; Stop 08/31/16 at 08:59; Status DC Atorvastatin Calcium (Lipitor) 20 mg DAILY PO ; Start 08/29/16 at 09:00; Stop at 09:00; Status DC Prenat Multivit/ Counter Top Assembler/Iron/Folic Ac (Multivitamin ) 1 tab DAILY PO Last administered on 09/03/16 09:15; Start 08/29/16 at 09:00 Risperidone (Risperdal) 0.25 mg BID PO Last administered on 09/03/16 19:41; Start 08/28/16 at 21:00 Atorvastatin Calcium (Lipitor) 20 mg HS PO Last administered on 09/03/16 19:40 ; Start 08/29/16 at 21:00 Buspirone HCl (Buspar) 10 mg TID PO Last administered on 09/03/16 19:41; Start 08/31/16 at 09:00 Divalproex Sodium (Depakote Sprinkles) 250 mg TID PO Last administered on 19:41; Start 08/31/16 at 21:00 Mirtazapine (Remeron) 7.5 mg QHS PO Last administered on 09/03/16 19:41; Start 09/02/16 at 21:00 Active Scripts Active Reported Ventolin Hfa Inhaler (Albuterol Sulfate) 18 Gm Hfa.aer.ad 2 Puff IH PRN Q4HRS PRN Seroquel (Quetiapine Fumarate) 50 Mg Tablet 1 Tab PO TID Montelukast Sodium Tablet (Montelukast Sodium) 10 Mg Tablet 10 Mg PO DAILY Milk Of Magnesia (Magnesium Hydroxide) 400 Mg/5 Ml Oral.susp 800 Mg PO DAILY Gabapentin 100 Mg Capsule 100 Mg PO TID Flonase Allergy Relief (Fluticasone Propionate) 9.9 Ml [place].susp 1 Sprays NS DAILY Donepezil Hcl 10 Mg Tablet 1 Tab PO HS Docusate Sodium 100 Mg Capsule 100 Mg PO DAILY Depakote Sprinkle (Divalproex Sodium) 125 Mg Cap.sprink 125 Mg PO QID Tums (Calcium Carbonate) 200 Mg Tab.chew 200 Mg PO PRN Q4HRS PRN Atorvastatin Calcium 10 Mg Tablet 10 Mg PO DAILY Tylenol (Acetaminophen) 325 Mg Tablet 650 Mg PO PRN Q4HRS PRN Diagnosis: Problems: (1) Anxiety disorder (2) Dementia in Alzheimer's disease with delusions (3) Dementia in Alzheimer's disease with depression (4) Dementia, vascular, with delusions (5) Dementia, vascular, with depression (6) Impulse control disorder ISREAL CUEVA MD Sep 03, 2016 21:06
--- NOTE | 2016-09-03 22:50 | NUR ---
Behavior Intervention Response and Plan: BIRP Note: Behavior: Assumed Care of patient, patient located in Patient Room at shift change. Patient exhibited the following behavior Calm, Sleeping, Withdrawn. Brief assessment on rounds of vital signs, medication needs, lab studies, and pain. Treatment plan problems 1 and 2. Intervention: Patient assessed and the following interventions initiated safety checks 15 Minute Checks Cognitive Assessment , Head to toe Assessment , Medications. Response: After interactions and interventions patient responded in the following manner, Calm , Compliant ,Cooperative. Continue to assess behaviors and condition will continue to monitor throughout the shift as needed. 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 Continue to assess patient for changes in above assessment. Monitor for medication needs, pain, and safety concerns. Hourly rounding performed to ensure safe environment.
[2016-09-04 05:42] VITALS: BP 103/64
[2016-09-04] MEDS: POLYETHYLENE GLYCOL 3350 17 GM PACKET. PO SCH (09:14)
[2016-09-04] MEDS: busPIRone 10 MG TABLET. PO SCH ×3 (09:14→19:10)
[2016-09-04] MEDS: FLUTICASONE 50MCG/NASAL SPRAY 16GM BOTTLE. NS SCH (09:14)
[2016-09-04] MEDS: DOCUSATE SODIUM 100 MG CAPSULE PO SCH (09:14)
[2016-09-04] MEDS: risperiDONE 0.25 MG TABLET. PO SCH ×2 (09:15→19:10)
[2016-09-04] MEDS: PRENATAL MULTIVITAMIN TABLET. PO SCH (09:15)
[2016-09-04] MEDS: GABAPENTIN 100 MG CAPSULE. PO SCH ×3 (09:15→19:10)
[2016-09-04] MEDS: DIVALPROEX 125 MG CAP.SPRINK PO SCH ×3 (09:15→19:10)
[2016-09-04] MEDS: MONTELUKAST 10 MG TABLET. PO SCH (09:15)
[2016-09-04] MEDS: MAGNESIUM HYDROXIDE 2,400 MG/30 ML ORAL.SUSP. PO SCH (09:15)
--- NOTE | 2016-09-04 09:25 | NUR ---
Behavior Intervention Response and Plan: BIRP Note: Behavior: Assumed Care of patient, patient located in Day Room at shift change. Patient exhibited the following behavior Calm, Disorganized, Cooperative. Brief assessment on rounds of vital signs, medication needs, lab studies, and pain. Treatment plan problems 1 & 2. Intervention: Patient assessed and the following interventions initiated safety checks 15 Minute Checks Cognitive Assessment , Head to toe Assessment , Medications. Response: After interactions and interventions patient responded in the following manner, Calm , Appropriate ,Compliant. Continue to assess behaviors and condition will continue to monitor throughout the shift as needed. 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 Continue to assess patient for changes in above assessment. Monitor for medication needs, pain, and safety concerns. Hourly rounding performed to ensure safe environment.
[2016-09-04 09:37] LABS: BASO % 1 % (0-3); EOS # 0.2 x10^3/uL (0.0-0.7); EOS % 6 % (0-3); HEMATOCRIT 43.3 % (39.0-53.0); HEMOGLOBIN 14.7 g/dL (13.0-17.5); LYMPH % 25 % (24-48); MEAN CORPUSCULAR HEMOGLOBIN 31 pg (25-35); MEAN CORPUSCULAR HGB CONC 34 g/dL (31-37); MEAN CORPUSCULAR VOLUME 91 fL (79-100); MONO # 0.5 x10^3/uL (0.0-1.1); MONO % 12 % (0-9); NEUT # 2.1 x10^3uL (1.8-7.7); NEUT % 56 % (31-73); PLATELET COUNT 167 x10^3/uL (140-400); RED BLOOD COUNT 4.77 x10^6/uL (4.30-5.70); RED CELL DISTRIBUTION WIDTH 14.3 % (11.5-14.5); WHITE BLOOD COUNT 3.8 x10^3/uL (4.0-11.0)
[2016-09-04 09:47] LABS: ALBUMIN 3.7 g/dL (3.4-5.0); ALK PHOS 67 U/L (46-116); ALT (SGPT) 58 U/L (16-63); ANION GAP 8 (6-14); AST (SGOT) 32 U/L (15-37); BLOOD UREA NITROGEN 13 mg/dL (8-26); BUN/CREATININE RATIO 12 (6-20); CALCIUM 9.1 mg/dL (8.5-10.1); CARBON DIOXIDE 29 mmol/L (21-32); CHLORIDE 105 mmol/L (98-107); CREATININE 1.1 mg/dL (0.7-1.3); GFR 69.2; GLUCOSE 84 mg/dL (70-99); MAGNESIUM 2.3 mg/dL (1.8-2.4); POTASSIUM 4.2 mmol/L (3.5-5.1); SODIUM 142 mmol/L (136-145); TOTAL BILIRUBIN 0.9 mg/dL (0.2-1.0); TOTAL PROTEIN 7.4 g/dL (6.4-8.2); VAL ACID 52 mcg/mL (50-100)
[2016-09-04 15:32] VITALS: BP 112/79
[2016-09-04] MEDS: DONEPEZIL HCL 10 MG TABLET PO SCH (19:10)
[2016-09-04] MEDS: ATORVASTATIN CALCIUM 10 MG TABLET. PO SCH (19:10)
[2016-09-04] MEDS: MIRTAZAPINE 7.5 MG TABLET. PO SCH (19:10)
--- NOTE | 2016-09-04 20:54 | PDOC ---
Exam Yair Demential Exam: Yair Note: Please also refer to the separate dictated note~for this date of service dictated separately.~Patient seen individually. Discussed the patient with Nursing staff reviewed the chart.~Reviewed interim history and current functioning. Reviewed vital signs,~Labs/ Radiology~and current medications noted below. Continue current treatment with the changes noted in the dictated addendum note Assessment: Vital Signs: Vital Signs Date Time Temp Pulse Resp B/P Pulse Ox O2 Delivery O2 Flow Rate FiO2 09/04/16 15:32 98.2 70 20 112/79 92 Room Air I&O Intake and Output 09/04/16 07:00 Intake Total 680 ml Balance 680 ml Intake Oral 680 ml # Voids 2 # Bowel Movements 1 Labs: Laboratory Tests Test 09/04/16 09:09 White Blood Count 3.8x10^3/uL (4.0-11.0) L Red Blood Count 4.77x10^6/uL (4.30-5.70) Hemoglobin 14.7g/dL (13.0-17.5) Hematocrit 43.3% (39.0-53.0) Mean Corpuscular Volume 91fL (79-100) Mean Corpuscular Hemoglobin 31pg (25-35) Mean Corpuscular Hemoglobin Concent 34g/dL (31-37) Red Cell Distribution Width 14.3% (11.5-14.5) Platelet Count 167x10^3/uL (140-400) Neutrophils (%) (Auto) 56% (31-73) Lymphocytes (%) (Auto) 25% (24-48) Monocytes (%) (Auto) 12% (0-9) H Eosinophils (%) (Auto) 6% (0-3) H Basophils (%) (Auto) 1% (0-3) Neutrophils # (Auto) 2.1x10^3uL (1.8-7.7) Lymphocytes # (Auto) 1.0x10^3/uL (1.0-4.8) Monocytes # (Auto) 0.5x10^3/uL (0.0-1.1) Eosinophils # (Auto) 0.2x10^3/uL (0.0-0.7) Basophils # (Auto) 0.0x10^3/uL (0.0-0.2) Sodium Level 142mmol/L (136-145) Potassium Level 4.2mmol/L (3.5-5.1) Chloride Level 105mmol/L (98-107) Carbon Dioxide Level 29mmol/L (21-32) Anion Gap 8 (6-14) Blood Urea Nitrogen 13mg/dL (8-26) Creatinine 1.1mg/dL (0.7-1.3) Estimated GFR (Cockcroft-Gault) 69.2 BUN/Creatinine Ratio 12 (6-20) Glucose Level 84mg/dL (70-99) Calcium Level 9.1mg/dL (8.5-10.1) Magnesium Level 2.3mg/dL (1.8-2.4) Total Bilirubin 0.9mg/dL (0.2-1.0) Aspartate Amino Transferase (AST) 32U/L (15-37) Alanine Aminotransferase (ALT) 58U/L (16-63) Alkaline Phosphatase 67U/L (46-116) Total Protein 7.4g/dL (6.4-8.2) Albumin 3.7g/dL (3.4-5.0) Albumin/Globulin Ratio 1.0 (1.0-1.7) Valproic Acid Level 52mcg/mL (50-100) Valproic Acid Last Dose Date 09/03/2016 Valproic Acid Last Dose Time 2100 Current Medications: Meds: Current Medications Acetaminophen (Tylenol) 650 mg PRN Q6HRS PRN PO PAIN / TEMP; Start 08/26/16 at 17:30; Stop 08/26/16 at 18:41; Status DC Multi-Ingredient Ointment (Analgesic [place]) 1 heather PRN QID PRN TP MUSCLE PAIN; Start 08/26/16 at 17:30 Al Hydroxide/Mg Hydroxide (Mylanta Plus Xs) 15 ml PRN AFTMEALHC PRN PO DYSPEPSIA; Start 08/26/16 at 17:30 Magnesium Hydroxide (Milk Of Magnesia) 2,400 mg PRN QHS PRN PO CONSTIPATION; Start 08/26/16 at 17:30 Acetaminophen (Tylenol) 650 mg PRN Q4HRS PRN PO DRY EYE; Start 08/26/16 at 18: 15 Divalproex Sodium (Depakote Sprinkles) 125 mg QID PO Last administered on t 16:38; Start 08/26/16 at 21:00; Stop 08/31/16 at 18:20; Status DC Donepezil HCl (Aricept) 10 mg HS PO Last administered on 09/04/16 19:10; Start 08/26/16 at 21:00 Quetiapine Fumarate (SEROquel) 50 mg TID PO Last administered on 08/28/16 11: 51; Start 08/26/16 at 21:00; Stop 08/28/16 at 19:10; Status DC Albuterol Sulfate (Ventolin Hfa) 2 puff PRN Q4HRS PRN IH WHEEZING; Start at 18:30; Status UNV Atorvastatin Calcium (Lipitor) 10 mg DAILY PO Last administered on 08/28/16 07 :46; Start 08/27/16 at 09:00; Stop 08/28/16 at 14:31; Status DC Calcium Carbonate/ Glycine (Tums) 500 mg PRN Q4HRS PRN PO HEARTBURN / GAS; Start 08/26/16 at 18:30 Docusate Sodium (Colace) 100 mg DAILY PO Last administered on 09/04/16 09:14; Start 08/27/16 at 09:00 Gabapentin (Neurontin) 100 mg TID PO Last administered on 09/04/16 19:10; Start 08/26/16 at 21:00 Magnesium Hydroxide (Milk Of Magnesia) 800 mg DAILY PO Last administered on 09:15; Start 08/27/16 at 09:00 Montelukast Sodium (Singulair) 10 mg DAILY PO Last administered on 09/04/16 09 :15; Start 08/27/16 at 09:00 Fluticasone Propionate (Flonase) 2 spray DAILY NS Last administered on 08:23; Start 08/27/16 at 09:00; Stop 08/27/16 at 15:01; Status DC Albuterol Sulfate (Ventolin) 2.5 mg PRN Q4HRS PRN NEB SHORTNESS OF BREATH; Start 08/26/16 at 18:45 Artificial Tears (Artificial Tears) 1 drop PRN Q15MIN PRN OU DRY EYE; Start at 19:00 Ergocalciferol (Vitamin D2) 50,000 unit WEEKLY PO Last administered on 12:00; Start 08/29/16 at 12:00 Polyethylene Glycol (miraLAX) 17 gm DAILY PO Last administered on 09/04/16 09: 14; Start 08/27/16 at 09:00 Olanzapine (Zyprexa Zydis) 2.5 mg PRN Q2HR PRN PO PSYCHOSIS Last administered on 08/31/16 08:51; Start 08/27/16 at 10:15 Fluticasone Propionate (Flonase) 2 spray DAILY NS Last administered on 09:14; Start 08/27/16 at 15:01 Buspirone HCl (Buspar) 10 mg BID92 PO Last administered on 08/30/16 12:17; Start 08/28/16 at 09:00; Stop 08/31/16 at 08:59; Status DC Atorvastatin Calcium (Lipitor) 20 mg DAILY PO ; Start 08/29/16 at 09:00; Stop at 09:00; Status DC Prenat Multivit/ [place]/Iron/Folic Ac (Multivitamin ) 1 tab DAILY PO Last administered on 09/04/16 09:15; Start 08/29/16 at 09:00 Risperidone (Risperdal) 0.25 mg BID PO Last administered on 09/04/16 19:10; Start 08/28/16 at 21:00 Atorvastatin Calcium (Lipitor) 20 mg HS PO Last administered on 09/04/16 19:10 ; Start 08/29/16 at 21:00 Buspirone HCl (Buspar) 10 mg TID PO Last administered on 09/04/16 19:10; Start 08/31/16 at 09:00 Divalproex Sodium (Depakote Sprinkles) 250 mg TID PO Last administered on 19:10; Start 08/31/16 at 21:00 Mirtazapine (Remeron) 7.5 mg QHS PO Last administered on 09/04/16 19:10; Start 09/02/16 at 21:00 Active Scripts Active Reported Ventolin Hfa Inhaler (Albuterol Sulfate) 18 Gm Hfa.aer.ad 2 Puff IH PRN Q4HRS PRN Seroquel (Quetiapine Fumarate) 50 Mg Tablet 1 Tab PO TID Montelukast Sodium Tablet (Montelukast Sodium) 10 Mg Tablet 10 Mg PO DAILY Milk Of Magnesia (Magnesium Hydroxide) 400 Mg/5 Ml Oral.susp 800 Mg PO DAILY Gabapentin 100 Mg Capsule 100 Mg PO TID Flonase Allergy Relief (Fluticasone Propionate) 9.9 Ml [place].susp 1 Sprays NS DAILY Donepezil Hcl 10 Mg Tablet 1 Tab PO HS Docusate Sodium 100 Mg Capsule 100 Mg PO DAILY Depakote Sprinkle (Divalproex Sodium) 125 Mg Cap.sprink 125 Mg PO QID Tums (Calcium Carbonate) 200 Mg Tab.chew 200 Mg PO PRN Q4HRS PRN Atorvastatin Calcium 10 Mg Tablet 10 Mg PO DAILY Tylenol (Acetaminophen) 325 Mg Tablet 650 Mg PO PRN Q4HRS PRN Diagnosis: Problems: (1) Anxiety disorder (2) Dementia in Alzheimer's disease with delusions (3) Dementia in Alzheimer's disease with depression (4) Dementia, vascular, with delusions (5) Dementia, vascular, with depression (6) Impulse control disorder ISREAL CUEVA MD Sep 04, 2016 20:54
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
--- NOTE | 2016-09-05 03:13 | NUR ---
Behavior Intervention Response and Plan: BIRP Note: Behavior: Assumed Care of patient, patient located in Day Room at shift change. Patient exhibited the following behavior Wandering, Calm, Cooperative. Brief assessment on rounds of vital signs, medication needs, lab studies, and pain. Treatment plan problems 1 and 2. Intervention: Patient assessed and the following interventions initiated safety checks 15 Minute Checks Cognitive Assessment , Head to toe Assessment , Medications. Response: After interactions and interventions patient responded in the following manner, Calm , Compliant ,Cooperative. Continue to assess behaviors and condition will continue to monitor throughout the shift as needed. 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 Continue to assess patient for changes in above assessment. Monitor for medication needs, pain, and safety concerns. Hourly rounding performed to ensure safe environment.
[2016-09-05 05:52] VITALS: BP 138/88
[2016-09-05] MEDS: risperiDONE 0.25 MG TABLET. PO SCH ×2 (09:22→19:14)
[2016-09-05] MEDS: busPIRone 10 MG TABLET. PO SCH ×3 (09:22→19:14)
[2016-09-05] MEDS: DOCUSATE SODIUM 100 MG CAPSULE PO SCH (09:22)
[2016-09-05] MEDS: DIVALPROEX 125 MG CAP.SPRINK PO SCH ×3 (09:22→19:14)
[2016-09-05] MEDS: PRENATAL MULTIVITAMIN TABLET. PO SCH (09:22)
[2016-09-05] MEDS: GABAPENTIN 100 MG CAPSULE. PO SCH ×3 (09:22→19:15)
[2016-09-05] MEDS: MAGNESIUM HYDROXIDE 2,400 MG/30 ML ORAL.SUSP. PO SCH (09:22)
[2016-09-05] MEDS: POLYETHYLENE GLYCOL 3350 17 GM PACKET. PO SCH (09:22)
[2016-09-05] MEDS: MONTELUKAST 10 MG TABLET. PO SCH (09:22)
[2016-09-05] MEDS: FLUTICASONE 50MCG/NASAL SPRAY 16GM BOTTLE. NS SCH (09:23)
[2016-09-05] MEDS: ERGOCALCIFEROL (VITAMIN D2) 50,000 UNIT CAPSULE PO SCH (09:24)
--- NOTE | 2016-09-05 14:43 | NUR ---
Behavior Intervention Response and Plan: BIRP Note: Behavior: Assumed Care of patient, patient located in Hallway at shift change. Patient exhibited the following behavior Wandering, Restless, Calm. Brief assessment on rounds of vital signs, medication needs, lab studies, and pain. Treatment plan problems 1 and 2. Intervention: Patient assessed and the following interventions initiated safety checks 15 Minute Checks Cognitive Assessment , Head to toe Assessment , Medications. Response: After interactions and interventions patient responded in the following manner, Disorganized , Appropriate ,Compliant. Continue to assess behaviors and condition will continue to monitor throughout the shift as needed. 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 Continue to assess patient for changes in above assessment. Monitor for medication needs, pain, and safety concerns. Hourly rounding performed to ensure safe environment.
--- NOTE | 2016-09-05 14:44 | NUR ---
Patient spent day wandering aimlessly in hallways, in and out of rooms. No adverse behaviors noted to this point in time. Will continue to monitor.
[2016-09-05 16:20] VITALS: BP 142/96
[2016-09-05] MEDS: ATORVASTATIN CALCIUM 10 MG TABLET. PO SCH (19:14)
[2016-09-05] MEDS: DONEPEZIL HCL 10 MG TABLET PO SCH (19:14)
[2016-09-05] MEDS: MIRTAZAPINE 7.5 MG TABLET. PO SCH (19:15)
--- NOTE | 2016-09-05 22:21 | PDOC ---
Exam Yair Demential Exam: Yair Note: Please also refer to the separate dictated note~for this date of service dictated separately.~Patient seen individually. Discussed the patient with Nursing staff reviewed the chart.~Reviewed interim history and current functioning. Reviewed vital signs,~Labs/ Radiology~and current medications noted below. Continue current treatment with the changes noted in the dictated addendum note Assessment: Vital Signs: Vital Signs Date Time Temp Pulse Resp B/P Pulse Ox O2 Delivery O2 Flow Rate FiO2 09/05/16 16:20 97.6 73 17 142/96 93 09/04/16 15:32 Room Air I&O Intake and Output 09/05/16 07:00 Intake Total 820 ml Balance 820 ml Intake Oral 820 ml # Voids 1 Current Medications: Meds: Current Medications Acetaminophen (Tylenol) 650 mg PRN Q6HRS PRN PO PAIN / TEMP; Start 08/26/16 at 17:30; Stop 08/26/16 at 18:41; Status DC Multi-Ingredient Ointment (Analgesic [place]) 1 heather PRN QID PRN TP MUSCLE PAIN; Start 08/26/16 at 17:30 Al Hydroxide/Mg Hydroxide (Mylanta Plus Xs) 15 ml PRN AFTMEALHC PRN PO DYSPEPSIA; Start 08/26/16 at 17:30 Magnesium Hydroxide (Milk Of Magnesia) 2,400 mg PRN QHS PRN PO CONSTIPATION; Start 08/26/16 at 17:30 Acetaminophen (Tylenol) 650 mg PRN Q4HRS PRN PO DRY EYE; Start 08/26/16 at 18: 15 Divalproex Sodium (Depakote Sprinkles) 125 mg QID PO Last administered on 16:38; Start 08/26/16 at 21:00; Stop 08/31/16 at 18:20; Status DC Donepezil HCl (Aricept) 10 mg HS PO Last administered on 09/05/16 19:14; Start 08/26/16 at 21:00 Quetiapine Fumarate (SEROquel) 50 mg TID PO Last administered on 08/28/16 11: 51; Start 08/26/16 at 21:00; Stop 08/28/16 at 19:10; Status DC Albuterol Sulfate (Ventolin Hfa) 2 puff PRN Q4HRS PRN IH WHEEZING; Start at 18:30; Status UNV Atorvastatin Calcium (Lipitor) 10 mg DAILY PO Last administered on 08/28/16 07 :46; Start 08/27/16 at 09:00; Stop 08/28/16 at 14:31; Status DC Calcium Carbonate/ Glycine (Tums) 500 mg PRN Q4HRS PRN PO HEARTBURN / GAS; Start 08/26/16 at 18:30 Docusate Sodium (Colace) 100 mg DAILY PO Last administered on 09/05/16 09:22; Start 08/27/16 at 09:00 Gabapentin (Neurontin) 100 mg TID PO Last administered on 09/05/16 19:15; Start 08/26/16 at 21:00 Magnesium Hydroxide (Milk Of Magnesia) 800 mg DAILY PO Last administered on 09:22; Start 08/27/16 at 09:00 Montelukast Sodium (Singulair) 10 mg DAILY PO Last administered on 09/05/16 09 :22; Start 08/27/16 at 09:00 Fluticasone Propionate (Flonase) 2 spray DAILY NS Last administered on 08:23; Start 08/27/16 at 09:00; Stop 08/27/16 at 15:01; Status DC Albuterol Sulfate (Ventolin) 2.5 mg PRN Q4HRS PRN NEB SHORTNESS OF BREATH; Start 08/26/16 at 18:45 Artificial Tears (Artificial Tears) 1 drop PRN Q15MIN PRN OU DRY EYE; Start at 19:00 Ergocalciferol (Vitamin D2) 50,000 unit WEEKLY PO Last administered on 09:24; Start 08/29/16 at 12:00 Polyethylene Glycol (miraLAX) 17 gm DAILY PO Last administered on 09/05/16 09: 22; Start 08/27/16 at 09:00 Olanzapine (Zyprexa Zydis) 2.5 mg PRN Q2HR PRN PO PSYCHOSIS Last administered on 08/31/16 08:51; Start 08/27/16 at 10:15 Fluticasone Propionate (Flonase) 2 spray DAILY NS Last administered on 09:23; Start 08/27/16 at 15:01 Buspirone HCl (Buspar) 10 mg BID92 PO Last administered on 08/30/16 12:17; Start 08/28/16 at 09:00; Stop 08/31/16 at 08:59; Status DC Atorvastatin Calcium (Lipitor) 20 mg DAILY PO ; Start 08/29/16 at 09:00; Stop at 09:00; Status DC Prenat Multivit/ [place]/Iron/Folic Ac (Multivitamin ) 1 tab DAILY PO Last administered on 09/05/16 09:22; Start 08/29/16 at 09:00 Risperidone (Risperdal) 0.25 mg BID PO Last administered on 09/05/16 19:14; Start 08/28/16 at 21:00 Atorvastatin Calcium (Lipitor) 20 mg HS PO Last administered on 09/05/16 19:14 ; Start 08/29/16 at 21:00 Buspirone HCl (Buspar) 10 mg TID PO Last administered on 09/05/16 14:19; Start 08/31/16 at 09:00; Stop 09/05/16 at 18:57; Status DC Divalproex Sodium (Depakote Sprinkles) 250 mg TID PO Last administered on 19:14; Start 08/31/16 at 21:00 Mirtazapine (Remeron) 7.5 mg QHS PO Last administered on 09/05/16 19:15; Start 09/02/16 at 21:00 Buspirone HCl (Buspar) 10 mg QID PO Last administered on 09/05/16 19:14; Start 09/05/16 at 21:00 Active Scripts Active Reported Ventolin Hfa Inhaler (Albuterol Sulfate) 18 Gm Hfa.aer.ad 2 Puff IH PRN Q4HRS PRN Seroquel (Quetiapine Fumarate) 50 Mg Tablet 1 Tab PO TID Montelukast Sodium Tablet (Montelukast Sodium) 10 Mg Tablet 10 Mg PO DAILY Milk Of Magnesia (Magnesium Hydroxide) 400 Mg/5 Ml Oral.susp 800 Mg PO DAILY Gabapentin 100 Mg Capsule 100 Mg PO TID Flonase Allergy Relief (Fluticasone Propionate) 9.9 Ml [place].susp 1 Sprays NS DAILY Donepezil Hcl 10 Mg Tablet 1 Tab PO HS Docusate Sodium 100 Mg Capsule 100 Mg PO DAILY Depakote Sprinkle (Divalproex Sodium) 125 Mg Cap.sprink 125 Mg PO QID Tums (Calcium Carbonate) 200 Mg Tab.chew 200 Mg PO PRN Q4HRS PRN Atorvastatin Calcium 10 Mg Tablet 10 Mg PO DAILY Tylenol (Acetaminophen) 325 Mg Tablet 650 Mg PO PRN Q4HRS PRN Diagnosis: Problems: (1) Anxiety disorder (2) Dementia in Alzheimer's disease with delusions (3) Dementia in Alzheimer's disease with depression (4) Dementia, vascular, with delusions (5) Dementia, vascular, with depression (6) Impulse control disorder ISREAL CUEVA MD Sep 05, 2016 22:21
--- NOTE | 2016-09-05 23:22 | NUR ---
Behavior Intervention Response and Plan: BIRP Note: Behavior: Assumed Care of patient, patient located in Day Room at shift change. Patient exhibited the following behavior Wandering, Calm, Disorganized. Brief assessment on rounds of vital signs, medication needs, lab studies, and pain. Treatment plan problems 1 and 2. Intervention: Patient assessed and the following interventions initiated safety checks 15 Minute Checks Cognitive Assessment , Head to toe Assessment , Medications. Response: After interactions and interventions patient responded in the following manner, Calm , Compliant ,Cooperative. Continue to assess behaviors and condition will continue to monitor throughout the shift as needed. 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 Continue to assess patient for changes in above assessment. Monitor for medication needs, pain, and safety concerns. Hourly rounding performed to ensure safe environment.
[2016-09-06 06:04] VITALS: BP 124/75
[2016-09-06] MEDS: FLUTICASONE 50MCG/NASAL SPRAY 16GM BOTTLE. NS SCH (09:00)
[2016-09-06] MEDS: GABAPENTIN 100 MG CAPSULE. PO SCH ×3 (09:25→19:56)
[2016-09-06] MEDS: DOCUSATE SODIUM 100 MG CAPSULE PO SCH (09:25)
[2016-09-06] MEDS: MONTELUKAST 10 MG TABLET. PO SCH (09:25)
[2016-09-06] MEDS: PRENATAL MULTIVITAMIN TABLET. PO SCH (09:25)
[2016-09-06] MEDS: busPIRone 10 MG TABLET. PO SCH ×4 (09:26→19:56)
[2016-09-06] MEDS: MAGNESIUM HYDROXIDE 2,400 MG/30 ML ORAL.SUSP. PO SCH (09:26)
[2016-09-06] MEDS: DIVALPROEX 125 MG CAP.SPRINK PO SCH ×3 (09:26→19:56)
[2016-09-06] MEDS: risperiDONE 0.25 MG TABLET. PO SCH ×2 (09:26→19:56)
[2016-09-06] MEDS: POLYETHYLENE GLYCOL 3350 17 GM PACKET. PO SCH (09:26)
--- NOTE | 2016-09-06 10:13 | NUR ---
Patient refusing morning medications this AM. Nurse attempted to administer meds mixed in pudding (how he normally takes his meds), but he shook his head, and said "No, I dont need those", will continue to monitor. Addendum: 09/06/16 at 1050 by JAYY BRANTLEY RN After re-approaching patient for the third time, patient agreed to take his medications without issues.
--- NOTE | 2016-09-06 13:08 | NUR ---
Behavior Intervention Response and Plan: BIRP Note: Behavior: Assumed Care of patient, patient located in Day Room at shift change. Patient exhibited the following behavior Wandering, Disorganized, Resistive. Brief assessment on rounds of vital signs, medication needs, lab studies, and pain. Treatment plan problems . Intervention: Patient assessed and the following interventions initiated safety checks 15 Minute Checks Cognitive Assessment , Head to toe Assessment , Medications. Response: After interactions and interventions patient responded in the following manner, Calm , Compliant ,Cooperative. Continue to assess behaviors and condition will continue to monitor throughout the shift as needed. 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 Continue to assess patient for changes in above assessment. Monitor for medication needs, pain, and safety concerns. Hourly rounding performed to ensure safe environment.
[2016-09-06 17:37] VITALS: BP 118/67
[2016-09-06] MEDS: DONEPEZIL HCL 10 MG TABLET PO SCH (19:55)
[2016-09-06] MEDS: MIRTAZAPINE 7.5 MG TABLET. PO SCH (19:56)
[2016-09-06] MEDS: ATORVASTATIN CALCIUM 10 MG TABLET. PO SCH (19:56)
--- NOTE | 2016-09-07 00:52 | NUR ---
Behavior Intervention Response and Plan: BIRP Note: Behavior: Assumed Care of patient, patient located in Day Room at shift change. Patient exhibited the following behavior Withdrawn, Drowsy, . Brief assessment on rounds of vital signs, medication needs, lab studies, and pain. Treatment plan problems 1-2. Intervention: Patient assessed and the following interventions initiated safety checks 15 Minute Checks Cognitive Assessment , Head to toe Assessment , Medications. Response: After interactions and interventions patient responded in the following manner, Withdrawn , Sleeping ,Calm. Continue to assess behaviors and condition will continue to monitor throughout the shift as needed. Plan: Continue to monitor Master Treatment Plan for patient's progress toward short term goals of Decreased Agitation, Improved Mood, fdc goals to return to previous living setting vs placement. Continue to assess patient for changes in above assessment. Monitor for medication needs, pain, and safety concerns. Hourly rounding performed to ensure safe environment.
--- NOTE | 2016-09-07 04:34 | PN ---
DATE: 09/05/2016 This is a late entry for 09/05/2016, covers the elements not covered in my initial note. SUBJECTIVE: The patient remains quite disorganized, raised his fist towards nursing staff, gets anxious at times. REVIEW OF SYSTEMS: No CV, , pulmonary, eye, ENT system symptoms on review. MENTAL STATUS EXAMINATION: Oriented to himself. Insight, judgment, recent and remote memory, attention, concentration, fund of knowledge poor, consistent with his diagnosis. Not very verbally interactive as I met with him. LABORATORY DATA: Reviewed. IMPRESSION: Unchanged from initial note. PLAN: Increase BuSpar from 10 t.i.d. to 10 four times a day; maintain the rest as before. Check valproic acid level, adjust further as indicated. MAN Javon CUEVA MD DR: TSERING/daniel JOB#: [id number] / [id number]
--- NOTE | 2016-09-07 05:38 | PN ---
DATE: 09/04/2016 PSYCHIATRIC PROGRESS NOTE This is a late entry 09/04 covers elements not covered in my initial note. The patient remains withdrawn, somewhat irritable, labile at times. Valproic acid level is 52. We will repeat it morning of 09/05/2016 as well. REVIEW OF SYSTEMS: No CV, , pulmonary, eye system symptoms on review. Reliability poor. MENTAL STATUS EXAM: Oriented to himself. Insight, judgment, recent and remote memory, attention, concentration, fund of knowledge poor, consistent with his diagnosis mentioned in my initial note. PLAN: Continue current psychotropics, follow labs level, adjust Depakote thereafter. MAN Javon CUEVA MD DR: TSERING/daniel JOB#: [id number] / [id number]
[2016-09-07 06:03] VITALS: BP 114/66
[2016-09-07] MEDS: DIVALPROEX 125 MG CAP.SPRINK PO SCH ×3 (09:27→19:56)
[2016-09-07] MEDS: MAGNESIUM HYDROXIDE 2,400 MG/30 ML ORAL.SUSP. PO SCH (09:27)
[2016-09-07] MEDS: PRENATAL MULTIVITAMIN TABLET. PO SCH (09:27)
[2016-09-07] MEDS: GABAPENTIN 100 MG CAPSULE. PO SCH ×3 (09:27→19:58)
[2016-09-07] MEDS: DOCUSATE SODIUM 100 MG CAPSULE PO SCH (09:27)
[2016-09-07] MEDS: POLYETHYLENE GLYCOL 3350 17 GM PACKET. PO SCH (09:27)
[2016-09-07] MEDS: MONTELUKAST 10 MG TABLET. PO SCH (09:28)
[2016-09-07] MEDS: risperiDONE 0.25 MG TABLET. PO SCH ×3 (09:28→19:56)
[2016-09-07] MEDS: busPIRone 10 MG TABLET. PO SCH ×4 (09:28→19:57)
[2016-09-07] MEDS: FLUTICASONE 50MCG/NASAL SPRAY 16GM BOTTLE. NS SCH (09:31)
[2016-09-07 10:18] LABS: VAL ACID 53 mcg/mL (50-100)
--- NOTE | 2016-09-07 11:09 | NUR ---
Behavior Intervention Response and Plan: BIRP Note: Behavior: Assumed Care of patient, patient located in Day Room at shift change. Patient exhibited the following behavior Disorganized, Wandering, Compliant. Brief assessment on rounds of vital signs, medication needs, lab studies, and pain. Treatment plan problems . Intervention: Patient assessed and the following interventions initiated safety checks 15 Minute Checks Cognitive Assessment , Head to toe Assessment , Medications. Response: After interactions and interventions patient responded in the following manner, Disorganized , Withdrawn ,Cooperative. Continue to assess behaviors and condition will continue to monitor throughout the shift as needed. 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 Continue to assess patient for changes in above assessment. Monitor for medication needs, pain, and safety concerns. Hourly rounding performed to ensure safe environment.
--- NOTE | 2016-09-07 11:17 | NUR ---
SW called review in to [phone]. Pt authed from September 06 to September 09 with update or D/C Clinicals due on September 09. Auth number remains the same as prior [id number]
--- NOTE | 2016-09-07 11:24 | NUR ---
SW called and provided update to facility with possible d/c date. RN asked this SW to call back in the am regarding this.
[2016-09-07 15:42] VITALS: BP 122/72
[2016-09-07] MEDS: DONEPEZIL HCL 10 MG TABLET PO SCH (19:56)
[2016-09-07] MEDS: MIRTAZAPINE 7.5 MG TABLET. PO SCH (19:56)
[2016-09-07] MEDS: ATORVASTATIN CALCIUM 20 MG TABLET PO SCH (19:58)
--- NOTE | 2016-09-07 20:36 | PDOC ---
Exam Yair Demential Exam: Yair Note: Please also refer to the separate dictated note~for this date of service dictated separately.~Patient seen individually. Discussed the patient with Nursing staff reviewed the chart.~Reviewed interim history and current functioning. Reviewed vital signs,~Labs/ Radiology~and current medications noted below. Continue current treatment with the changes noted in the dictated addendum note Assessment: Vital Signs: Vital Signs Date Time Temp Pulse Resp B/P Pulse Ox O2 Delivery O2 Flow Rate FiO2 09/07/16 15:42 97.6 59 20 122/72 100 09/04/16 15:32 Room Air I&O Intake and Output 09/07/16 07:00 Intake Total 480 ml Balance 480 ml Intake Oral 480 ml Labs: Laboratory Tests Test 09/07/16 09:40 Valproic Acid Level 53mcg/mL (50-100) Valproic Acid Last Dose Date 09/06/16 Valproic Acid Last Dose Time 2100 Current Medications: Meds: Current Medications Acetaminophen (Tylenol) 650 mg PRN Q6HRS PRN PO PAIN / TEMP; Start 08/26/16 at 17:30; Stop 08/26/16 at 18:41; Status DC Multi-Ingredient Ointment (Analgesic [place]) 1 heather PRN QID PRN TP MUSCLE PAIN; Start 08/26/16 at 17:30 Al Hydroxide/Mg Hydroxide (Mylanta Plus Xs) 15 ml PRN AFTMEALHC PRN PO DYSPEPSIA; Start 08/26/16 at 17:30 Magnesium Hydroxide (Milk Of Magnesia) 2,400 mg PRN QHS PRN PO CONSTIPATION; Start 08/26/16 at 17:30 Acetaminophen (Tylenol) 650 mg PRN Q4HRS PRN PO DRY EYE; Start 08/26/16 at 18: 15 Divalproex Sodium (Depakote Sprinkles) 125 mg QID PO Last administered on 16:38; Start 08/26/16 at 21:00; Stop 08/31/16 at 18:20; Status DC Donepezil HCl (Aricept) 10 mg HS PO Last administered on 09/07/16 19:56; Start 08/26/16 at 21:00 Quetiapine Fumarate (SEROquel) 50 mg TID PO Last administered on 08/28/16 11: 51; Start 08/26/16 at 21:00; Stop 08/28/16 at 19:10; Status DC Albuterol Sulfate (Ventolin Hfa) 2 puff PRN Q4HRS PRN IH WHEEZING; Start at 18:30; Status UNV Atorvastatin Calcium (Lipitor) 10 mg DAILY PO Last administered on 08/28/16 07 :46; Start 08/27/16 at 09:00; Stop 08/28/16 at 14:31; Status DC Calcium Carbonate/ Glycine (Tums) 500 mg PRN Q4HRS PRN PO HEARTBURN / GAS; Start 08/26/16 at 18:30 Docusate Sodium (Colace) 100 mg DAILY PO Last administered on 09/07/16 09:27; Start 08/27/16 at 09:00 Gabapentin (Neurontin) 100 mg TID PO Last administered on 09/07/16 19:58; Start 08/26/16 at 21:00 Magnesium Hydroxide (Milk Of Magnesia) 800 mg DAILY PO Last administered on 09/07 09:27; Start 08/27/16 at 09:00 Montelukast Sodium (Singulair) 10 mg DAILY PO Last administered on 09/07/16 09: 28; Start 08/27/16 at 09:00 Fluticasone Propionate (Flonase) 2 spray DAILY NS Last administered on 08:23; Start 08/27/16 at 09:00; Stop 08/27/16 at 15:01; Status DC Albuterol Sulfate (Ventolin) 2.5 mg PRN Q4HRS PRN NEB SHORTNESS OF BREATH; Start 08/26/16 at 18:45 Artificial Tears (Artificial Tears) 1 drop PRN Q15MIN PRN OU DRY EYE; Start at 19:00 Ergocalciferol (Vitamin D2) 50,000 unit WEEKLY PO Last administered on 09:24; Start 08/29/16 at 12:00 Polyethylene Glycol (miraLAX) 17 gm DAILY PO Last administered on 09/07/16 09: 27; Start 08/27/16 at 09:00 Olanzapine (Zyprexa Zydis) 2.5 mg PRN Q2HR PRN PO PSYCHOSIS Last administered on 08/31/16 08:51; Start 08/27/16 at 10:15 Fluticasone Propionate (Flonase) 2 spray DAILY NS Last administered on 09:31; Start 08/27/16 at 15:01 Buspirone HCl (Buspar) 10 mg BID92 PO Last administered on 08/30/16 12:17; Start 08/28/16 at 09:00; Stop 08/31/16 at 08:59; Status DC Atorvastatin Calcium (Lipitor) 20 mg DAILY PO ; Start 08/29/16 at 09:00; Stop at 09:00; Status DC Prenat Multivit/ [place]/Iron/Folic Ac (Multivitamin ) 1 tab DAILY PO Last administered on 09/07/16 09:27; Start 08/29/16 at 09:00 Risperidone (Risperdal) 0.25 mg BID PO Last administered on 09/07/16 09:28; Start 08/28/16 at 21:00; Stop 09/07/16 at 10:46; Status DC Atorvastatin Calcium (Lipitor) 20 mg HS PO Last administered on 09/06/16 19:56 ; Start 08/29/16 at 21:00; Stop 09/07/16 at 15:25; Status DC Buspirone HCl (Buspar) 10 mg TID PO Last administered on 09/05/16 14:19; Start 08/31/16 at 09:00; Stop 09/05/16 at 18:57; Status DC Divalproex Sodium (Depakote Sprinkles) 250 mg TID PO Last administered on 19:56; Start 08/31/16 at 21:00 Mirtazapine (Remeron) 7.5 mg QHS PO Last administered on 09/07/16 19:56; Start 09/02/16 at 21:00 Buspirone HCl (Buspar) 10 mg QID PO Last administered on 09/07/16 19:57; Start 09/05/16 at 21:00 Risperidone (Risperdal) 0.25 mg TID PO Last administered on 09/07/16 19:56; Start 09/07/16 at 14:00 Atorvastatin Calcium (Lipitor) 20 mg QHS PO Last administered on 5/1/17at 19:58 ; Start 09/07/16 at 21:00 Active Scripts Active Reported Ventolin Hfa Inhaler (Albuterol Sulfate) 18 Gm Hfa.aer.ad 2 Puff IH PRN Q4HRS PRN Seroquel (Quetiapine Fumarate) 50 Mg Tablet 1 Tab PO TID Montelukast Sodium Tablet (Montelukast Sodium) 10 Mg Tablet 10 Mg PO DAILY Milk Of Magnesia (Magnesium Hydroxide) 400 Mg/5 Ml Oral.susp 800 Mg PO DAILY Gabapentin 100 Mg Capsule 100 Mg PO TID Flonase Allergy Relief (Fluticasone Propionate) 9.9 Ml [place].susp 1 Sprays NS DAILY Donepezil Hcl 10 Mg Tablet 1 Tab PO HS Docusate Sodium 100 Mg Capsule 100 Mg PO DAILY Depakote Sprinkle (Divalproex Sodium) 125 Mg Cap.sprink 125 Mg PO QID Tums (Calcium Carbonate) 200 Mg Tab.chew 200 Mg PO PRN Q4HRS PRN Atorvastatin Calcium 10 Mg Tablet 10 Mg PO DAILY Tylenol (Acetaminophen) 325 Mg Tablet 650 Mg PO PRN Q4HRS PRN Diagnosis: Problems: (1) Anxiety disorder (2) Dementia in Alzheimer's disease with delusions (3) Dementia in Alzheimer's disease with depression (4) Dementia, vascular, with delusions (5) Dementia, vascular, with depression (6) Impulse control disorder ISREAL CUEVA MD September 07, 2016 20:36
--- NOTE | 2016-09-08 01:41 | PN ---
DATE: 09/06/2016 PSYCHIATRIC PROGRESS NOTE This is late entry of 09/06/2016, covers elements not covered in my initial note. OBJECTIVE: Temperature 97, pulse 60, respirations 18, BP 114/64. SUBJECTIVE: The patient is resistive to medications morning of 09/06/2016, just said "no" but took them later. Still somewhat paranoid, delusional. REVIEW OF SYSTEMS: No CV, , pulmonary, eye, ENT system symptoms on review. Reliability poor. MENTAL STATUS EXAMINATION: Oriented to himself, not very verbal, somewhat suspicious, staring at me as I sat with him. Insight, judgment, recent and remote memory, attention, concentration, fund of knowledge poor, consistent with his diagnosis. LABORATORY DATA: Valproic acid level 52. IMPRESSION: Major neurocognitive disorder, Alzheimer, vascular with delusion, depression, behavioral disturbance. PLAN: Check valproic acid level 51, increase Risperdal from 0.25 b.i.d. to 0.25 t.i.d., continue Aricept 10 mg a day, Depakote 250 t.i.d., Zyprexa p.r.n., BuSpar 10 four times a day, Remeron 7.5 at bedtime. MAN Javon CUEVA MD DR: TSERING/daniel JOB#: [id number] / [id number]
--- NOTE | 2016-09-08 03:07 | NUR ---
Behavior Intervention Response and Plan: BIRP Note: Behavior: Assumed Care of patient, patient located in Day Room at shift change. Patient exhibited the following behavior Wandering, Disorganized, Withdrawn. Brief assessment on rounds of vital signs, medication needs, lab studies, and pain. Treatment plan problems Dementia with BD, and Fall Risk. Intervention: Patient assessed and the following interventions initiated safety checks 15 Minute Checks Cognitive Assessment , Head to toe Assessment , Medications. Response: After interactions and interventions patient responded in the following manner, Wandering , Disorganized ,Compliant. Continue to assess behaviors and condition will continue to monitor throughout the shift as needed. Plan: Continue to monitor Master Treatment Plan for patient's progress toward short term goals of Decreased Agitation, No harm To self/ others, medical terminologist goals to return to previous living setting vs placement. Continue to assess patient for changes in above assessment. Monitor for medication needs, pain, and safety concerns. Hourly rounding performed to ensure safe environment.
[2016-09-08 06:24] VITALS: BP 104/52
[2016-09-08] MEDS: GABAPENTIN 100 MG CAPSULE. PO SCH ×3 (08:40→20:23)
[2016-09-08] MEDS: FLUTICASONE 50MCG/NASAL SPRAY 16GM BOTTLE. NS SCH (08:40)
[2016-09-08] MEDS: POLYETHYLENE GLYCOL 3350 17 GM PACKET. PO SCH (08:40)
[2016-09-08] MEDS: PRENATAL MULTIVITAMIN TABLET. PO SCH (08:41)
[2016-09-08] MEDS: MONTELUKAST 10 MG TABLET. PO SCH (08:41)
[2016-09-08] MEDS: risperiDONE 0.25 MG TABLET. PO SCH ×3 (08:41→20:23)
[2016-09-08] MEDS: DOCUSATE SODIUM 100 MG CAPSULE PO SCH (08:41)
[2016-09-08] MEDS: DIVALPROEX 125 MG CAP.SPRINK PO SCH ×3 (08:41→20:23)
[2016-09-08] MEDS: busPIRone 10 MG TABLET. PO SCH ×4 (08:41→20:23)
[2016-09-08] MEDS: MAGNESIUM HYDROXIDE 2,400 MG/30 ML ORAL.SUSP. PO SCH (08:42)
--- NOTE | 2016-09-08 10:10 | NUR ---
Behavior Intervention Response and Plan: BIRP Note: Behavior: Assumed Care of patient, patient located in Day Room at shift change. Patient exhibited the following behavior Wandering, Disorganized, Compliant. Brief assessment on rounds of vital signs, medication needs, lab studies, and pain. Treatment plan problems . Intervention: Patient assessed and the following interventions initiated safety checks 15 Minute Checks Medications , Head to toe Assessment , Nutrition. Response: After interactions and interventions patient responded in the following manner, Disorganized , Drowsy ,Withdrawn. Continue to assess behaviors and condition will continue to monitor throughout the shift as needed. Plan: Continue to monitor Master Treatment Plan for patient's progress toward short term goals of No harm To self/ others, Decreased Aggression, technician terminal and repeater goals to return to previous living setting vs placement. Continue to assess patient for changes in above assessment. Monitor for medication needs, pain, and safety concerns. Hourly rounding performed to ensure safe environment.
[2016-09-08 15:52] VITALS: BP 127/80
--- NOTE | 2016-09-08 16:11 | NUR ---
[facility] Social Work Discharge Planning Form Patient Name HELEN TORRES Admit Date: 08/26/16 DISCHARGE PLAN Discharge Destination: [facility] Transportation: Medicaid transport Special Instructions/Notes: DISCHARGE TO FACILITY Facility: [facility] Address: [address] [place] [id number] Contact Name: Hubert WOODS, Other: Contact Name: GEORGE WOODS, Other: PCP: at facility Psychiatrist: at facility Psychiatrist/Mental Health Follow Up at facility Primary Care Follow Up at facility
[2016-09-08] MEDS: DONEPEZIL HCL 10 MG TABLET PO SCH (20:23)
[2016-09-08] MEDS: ATORVASTATIN CALCIUM 20 MG TABLET PO SCH (20:23)
[2016-09-08] MEDS: MIRTAZAPINE 7.5 MG TABLET. PO SCH (20:24)
--- NOTE | 2016-09-08 21:11 | PDOC ---
Exam Yair Demential Exam: Yair Note: Please also refer to the separate dictated note~for this date of service dictated separately.~Patient seen individually. Discussed the patient with Nursing staff reviewed the chart.~Reviewed interim history and current functioning. Reviewed vital signs,~Labs/ Radiology~and current medications noted below. Continue current treatment with the changes noted in the dictated addendum note Assessment: Vital Signs: Vital Signs Date Time Temp Pulse Resp B/P Pulse Ox O2 Delivery O2 Flow Rate FiO2 09/08/16 15:52 97.3 56 18 127/80 92 09/04/16 15:32 Room Air I&O Intake and Output 09/08/16 07:00 Intake Total 420 ml Balance 420 ml Intake Oral 420 ml # Voids 2 # Bowel Movements 1 Current Medications: Meds: Current Medications Acetaminophen (Tylenol) 650 mg PRN Q6HRS PRN PO PAIN / TEMP; Start 08/26/16 at 17:30; Stop 08/26/16 at 18:41; Status DC Multi-Ingredient Ointment (Analgesic [place]) 1 heather PRN QID PRN TP MUSCLE PAIN; Start 08/26/16 at 17:30 Al Hydroxide/Mg Hydroxide (Mylanta Plus Xs) 15 ml PRN AFTMEALHC PRN PO DYSPEPSIA; Start 08/26/16 at 17:30 Magnesium Hydroxide (Milk Of Magnesia) 2,400 mg PRN QHS PRN PO CONSTIPATION; Start 08/26/16 at 17:30 Acetaminophen (Tylenol) 650 mg PRN Q4HRS PRN PO DRY EYE; Start 08/26/16 at 18: 15 Divalproex Sodium (Depakote Sprinkles) 125 mg QID PO Last administered on 16:38; Start 08/26/16 at 21:00; Stop 08/31/16 at 18:20; Status DC Donepezil HCl (Aricept) 10 mg HS PO Last administered on 09/08/16 20:23; Start 08/26/16 at 21:00 Quetiapine Fumarate (SEROquel) 50 mg TID PO Last administered on 08/28/16 11: 51; Start 08/26/16 at 21:00; Stop 08/28/16 at 19:10; Status DC Albuterol Sulfate (Ventolin Hfa) 2 puff PRN Q4HRS PRN IH WHEEZING; Start at 18:30; Status UNV Atorvastatin Calcium (Lipitor) 10 mg DAILY PO Last administered on 08/28/16 07 :46; Start 08/27/16 at 09:00; Stop 08/28/16 at 14:31; Status DC Calcium Carbonate/ Glycine (Tums) 500 mg PRN Q4HRS PRN PO HEARTBURN / GAS; Start 08/26/16 at 18:30 Docusate Sodium (Colace) 100 mg DAILY PO Last administered on 09/08/16 08:41; Start 08/27/16 at 09:00 Gabapentin (Neurontin) 100 mg TID PO Last administered on 09/08/16 20:23; Start 08/26/16 at 21:00 Magnesium Hydroxide (Milk Of Magnesia) 800 mg DAILY PO Last administered on 09/08 08:42; Start 08/27/16 at 09:00 Montelukast Sodium (Singulair) 10 mg DAILY PO Last administered on 09/08/16 08: 41; Start 08/27/16 at 09:00 Fluticasone Propionate (Flonase) 2 spray DAILY NS Last administered on 08:23; Start 08/27/16 at 09:00; Stop 08/27/16 at 15:01; Status DC Albuterol Sulfate (Ventolin) 2.5 mg PRN Q4HRS PRN NEB SHORTNESS OF BREATH; Start 08/26/16 at 18:45 Artificial Tears (Artificial Tears) 1 drop PRN Q15MIN PRN OU DRY EYE; Start at 19:00 Ergocalciferol (Vitamin D2) 50,000 unit WEEKLY PO Last administered on 09:24; Start 08/29/16 at 12:00 Polyethylene Glycol (miraLAX) 17 gm DAILY PO Last administered on 09/08/16 08: 40; Start 08/27/16 at 09:00 Olanzapine (Zyprexa Zydis) 2.5 mg PRN Q2HR PRN PO PSYCHOSIS Last administered on 08/31/16 08:51; Start 08/27/16 at 10:15 Fluticasone Propionate (Flonase) 2 spray DAILY NS Last administered on 08:40; Start 08/27/16 at 15:01 Buspirone HCl (Buspar) 10 mg BID92 PO Last administered on 08/30/16 12:17; Start 08/28/16 at 09:00; Stop 08/31/16 at 08:59; Status DC Atorvastatin Calcium (Lipitor) 20 mg DAILY PO ; Start 08/29/16 at 09:00; Stop at 09:00; Status DC Prenat Multivit/ [place]/Iron/Folic Ac (Multivitamin ) 1 tab DAILY PO Last administered on 09/08/16 08:41; Start 08/29/16 at 09:00 Risperidone (Risperdal) 0.25 mg BID PO Last administered on 09/07/16 09:28; Start 08/28/16 at 21:00; Stop 09/07/16 at 10:46; Status DC Atorvastatin Calcium (Lipitor) 20 mg HS PO Last administered on 09/06/16 19:56 ; Start 08/29/16 at 21:00; Stop 09/07/16 at 15:25; Status DC Buspirone HCl (Buspar) 10 mg TID PO Last administered on 09/05/16 14:19; Start 08/31/16 at 09:00; Stop 09/05/16 at 18:57; Status DC Divalproex Sodium (Depakote Sprinkles) 250 mg TID PO Last administered on 20:23; Start 08/31/16 at 21:00 Mirtazapine (Remeron) 7.5 mg QHS PO Last administered on 09/08/16 20:24; Start 09/02/16 at 21:00 Buspirone HCl (Buspar) 10 mg QID PO Last administered on 09/08/16 20:23; Start 09/05/16 at 21:00 Risperidone (Risperdal) 0.25 mg TID PO Last administered on 09/08/16 20:23; Start 09/07/16 at 14:00 Atorvastatin Calcium (Lipitor) 20 mg QHS PO Last administered on 09/08/16 20:23 ; Start 09/07/16 at 21:00 Active Scripts Active Reported Ventolin Hfa Inhaler (Albuterol Sulfate) 18 Gm Hfa.aer.ad 2 Puff IH PRN Q4HRS PRN Seroquel (Quetiapine Fumarate) 50 Mg Tablet 1 Tab PO TID Montelukast Sodium Tablet (Montelukast Sodium) 10 Mg Tablet 10 Mg PO DAILY Milk Of Magnesia (Magnesium Hydroxide) 400 Mg/5 Ml Oral.susp 800 Mg PO DAILY Gabapentin 100 Mg Capsule 100 Mg PO TID Flonase Allergy Relief (Fluticasone Propionate) 9.9 Ml [place].susp 1 Sprays NS DAILY Donepezil Hcl 10 Mg Tablet 1 Tab PO HS Docusate Sodium 100 Mg Capsule 100 Mg PO DAILY Depakote Sprinkle (Divalproex Sodium) 125 Mg Cap.sprink 125 Mg PO QID Tums (Calcium Carbonate) 200 Mg Tab.chew 200 Mg PO PRN Q4HRS PRN Atorvastatin Calcium 10 Mg Tablet 10 Mg PO DAILY Tylenol (Acetaminophen) 325 Mg Tablet 650 Mg PO PRN Q4HRS PRN Diagnosis: Problems: (1) Anxiety disorder (2) Dementia in Alzheimer's disease with delusions (3) Dementia in Alzheimer's disease with depression (4) Dementia, vascular, with delusions (5) Dementia, vascular, with depression (6) Impulse control disorder ISREAL CUEVA MD September 08, 2016 21:11
--- NOTE | 2016-09-08 21:15 | NUR ---
Behavior Intervention Response and Plan: BIRP Note: Behavior: Assumed Care of patient, patient located in Patient Room at shift change. Patient exhibited the following behavior Calm, Cooperative, Withdrawn. Brief assessment on rounds of vital signs, medication needs, lab studies, and pain. Treatment plan problems: Dementia with BD and Fall Risk . Intervention: Patient assessed and the following interventions initiated safety checks 15 Minute Checks Cognitive Assessment , Head to toe Assessment , Medications. Response: After interactions and interventions patient responded in the following manner, Calm , Compliant ,Cooperative. Continue to assess behaviors and condition will continue to monitor throughout the shift as needed. Plan: Continue to monitor Master Treatment Plan for patient's progress toward short term goals of Medication Compliance, Improved Mood, residential goals to return to previous living setting vs placement. Continue to assess patient for changes in above assessment. Monitor for medication needs, pain, and safety concerns. Hourly rounding performed to ensure safe environment.
[2016-09-09] MEDS ORDERED: ATOR20TA58 PO (02:58)
[2016-09-09] MEDS ORDERED: ALBU2.5V5 NEB (02:58)
[2016-09-09] MEDS ORDERED: CALC500T PO (03:02)
[2016-09-09] MEDS ORDERED: ERGO500027 PO (03:03)
[2016-09-09] MEDS ORDERED: FLUT16SP21 NS (03:06)
[2016-09-09] MEDS ORDERED: MAG30ORA2 PO (03:09)
[2016-09-09] MEDS ORDERED: MAGN2400 PO (03:10)
[2016-09-09] MEDS ORDERED: METH29OI TP (03:12)
[2016-09-09] MEDS ORDERED: MIRT15TA PO (03:13)
[2016-09-09] MEDS ORDERED: OLAN5TAB5 PO (03:14)
[2016-09-09] MEDS ORDERED: POLY17PO3 PO (03:15)
[2016-09-09] MEDS ORDERED: POLY15DR27 OU (03:17)
[2016-09-09] MEDS ORDERED: PNV1TABL78 PO (03:19)
[2016-09-09] MEDS ORDERED: BUSP10TA PO (03:22)
[2016-09-09] MEDS ORDERED: RISP0.253 PO (03:24)
--- NOTE | 2016-09-09 03:27 | PN ---
DATE: 09/07/2016 PSYCHIATRIC PROGRESS NOTE This is a late entry of 09/07/2016, covers elements not covered in my initial of 09/07/2016. SUBJECTIVE: Per nursing report, the patient is compliant with his medications, confused, less paranoid, less scowling in his face, less aggressive. REVIEW OF SYSTEMS: No CV, , pulmonary, eye, ENT system symptoms on review. Reliability poor. MENTAL STATUS EXAM: Oriented to himself. Insight, judgment, recent and remote memory, attention, concentration, fund of knowledge poor, consistent with his diagnosis mentioned in my initial note. PLAN: Continue Risperdal 0.25 t.i.d., Aricept 10 mg a day, Depakote 250 t.i.d., level is 52, Zyprexa p.r.n., BuSpar 10 four times a day, Remeron 7.5 at bedtime. Discharge in the next day or 2 to his nursing facility. ISREAL CUEVA MD DR: TSERING/daniel JOB#: [id number] / [id number]
[2016-09-09 06:23] VITALS: BP 123/73
[2016-09-09] MEDS: DIVALPROEX 125 MG CAP.SPRINK PO SCH (08:39)
[2016-09-09] MEDS: PRENATAL MULTIVITAMIN TABLET. PO SCH (08:39)
[2016-09-09] MEDS: DOCUSATE SODIUM 100 MG CAPSULE PO SCH (08:39)
[2016-09-09] MEDS: GABAPENTIN 100 MG CAPSULE. PO SCH (08:39)
[2016-09-09] MEDS: MONTELUKAST 10 MG TABLET. PO SCH (08:39)
[2016-09-09] MEDS: FLUTICASONE 50MCG/NASAL SPRAY 16GM BOTTLE. NS SCH (08:39)
[2016-09-09] MEDS: risperiDONE 0.25 MG TABLET. PO SCH (08:40)
[2016-09-09] MEDS: POLYETHYLENE GLYCOL 3350 17 GM PACKET. PO SCH (08:40)
[2016-09-09] MEDS: busPIRone 10 MG TABLET. PO SCH (08:40)
[2016-09-09] MEDS: MAGNESIUM HYDROXIDE 2,400 MG/30 ML ORAL.SUSP. PO SCH (08:40)
--- NOTE | 2016-09-09 10:00 | NUR ---
Behavior Intervention Response and Plan: BIRP Note: Behavior: Assumed Care of patient, patient located in Hallway at shift change. Patient exhibited the following behavior Wandering, Restless, Disorganized. Brief assessment on rounds of vital signs, medication needs, lab studies, and pain. Treatment plan problems 1 and 2. Intervention: Patient assessed and the following interventions initiated safety checks 15 Minute Checks Cognitive Assessment , Head to toe Assessment , Medications. Response: After interactions and interventions patient responded in the following manner, Wandering , Restless ,Compliant. Continue to assess behaviors and condition will continue to monitor throughout the shift as needed. Plan: Continue to monitor Master Treatment Plan for patient's progress toward short term goals of Decreased Agitation, Decreased Aggression, fpc goals to return to previous living setting vs placement. Continue to assess patient for changes in above assessment. Monitor for medication needs, pain, and safety concerns. Hourly rounding performed to ensure safe environment.
--- NOTE | 2016-09-09 10:15 | NUR ---
Discharge Note [facility] Patient is not currently a tobacco user. Follow up Appointment made: PCP at facility Date and Time instructions and Social Work Discharge planning sheet sent to next level of care. [facility] contact Number for 24 hour support [phone] Discharge Packet Sent, and discusssed with patient and caregiver that includes Copies from the record of current medications with indications and frequencies, history and physical, Psychiatric Eval with reason and justification for admission, Lab values, Radiology results , follow up instructions for continuation of care, and Social Work discharge planning form: yes Discharge Packet Faxed to Provider/Next Level of Care: yes Discharge Packet Faxed with discharge Order and Discharge diagnosis sent to: [facility] Discharge Packet Discussed, and report Given to: ally at [facility], packet given to mobile lounge driver upon pickup. Discharge instruction sheet was included in the packet and sent with the patient upon discharge. Any Pending lab results can be obtained by calling [phone]. None pending Discharge Summary will be sent to next care provider when available. This includes the reason for admission, DC diagnosis, and next level of care recommendations.
--- NOTE | 2016-09-09 10:15 | NUR ---
Patient discharged to [facility]. Transportation provided by medicare. Patient ambulated to transportation accompanied by Jesica CARRASCO and Danna DURON. Patient assisted into vehicle. Addendum: 09/09/16 at 1630 by JESICA RESENDIZ RN patient discharged to [facility].
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
--- NOTE | 2016-09-09 23:37 | PN ---
DATE: 09/08/2016 PSYCHIATRIC PROGRESS NOTE This is a late entry for 09/08/2016, covers elements not covered in my initial note. SUBJECTIVE: Per nursing report, the patient is not verbally interactive, fairly mute, nonverbal, withdrawn, takes his meds crushed not aggressive, fairly compliant. REVIEW OF SYSTEMS: No CV, , pulmonary, eye, ENT system symptoms on review. Reliability poor. MENTAL STATUS: Oriented to himself. Insight, judgment, recent and remote memory, attention, concentration, fund of knowledge poor, consistent with his diagnosis. Valproic acid level is 53. DIAGNOSIS: Mentioned in my initial note. PLAN: Continue current psychotropics mentioned in my initial note. Possible transition to senior living on 09/09/2016. MAN Javon CUEVA MD DR: TSERING/daniel JOB#: [id number] / [id number]
--- NOTE | 2016-09-11 20:00 | DS ---
DATE OF DISCHARGE: 09/09/2016 DISCHARGE SUMMARY/PSYCHIATRIC PROGRESS NOTE This is a late entry of 09/09/2016. REASON FOR ADMISSION: Please refer to the admission history for details. Briefly, the patient is a 55-year-old male referred to us from [facility] where he presented from [facility]. The patient has a history of progressive dementia, multifactorial was getting increasingly impulsive having difficulty following commands, aggressive towards staff and peers, resistive to cares having significant sundowning, problems with frequent falls. He had failed psychiatric interventions at [facility] resulting in this referral. SIGNIFICANT FINDINGS AND CLINICAL COURSE: Following admission, the patient was seen daily individually by myself from a psychiatric standpoint and medical followup with Dr. Steele/Dr. Chadwick. He was also seen for Neurology consult by Dr. Todd for his seizure disorder. Given his history of falls, Depakote had been discontinued, but after consult with Dr. Todd it was restarted and gradually adjusted to reach a therapeutic level at 250 mg t.i.d. with a level of 52. The patient was somewhat withdrawn and then agitated, aggressive at times. Adjustments were made in his psychotropics and he seemed to respond to a combination of Risperdal 0.25 mg t.i.d., Aricept 10 mg a day, Depakote 250 t.i.d., Zyprexa 2.5 mg q.2 hours p.r.n., psychosis, agitation, BuSpar 10 mg 4 times a day, Remeron 7.5 mg p.o. at bedtime. Prior to discharge on 09/09/2016, BP 123/73, pulse 48, respirations 16. The patient slept 9-1/2 hours the previous night. REVIEW OF SYSTEMS: No CV, , pulmonary, eye, ENT system symptoms on review. Not very verbal. MENTAL STATUS EXAM: Oriented to himself. Insight, judgment, recent and remote memory, attention, concentration, fund of knowledge poor, consistent with his diagnosis. FINAL DIAGNOSES: Major neurocognitive disorder, multifactorial, Alzheimer, vascular with depression, delusion, behavioral disturbance; anxiety disorder, unspecified; impulse control disorder, unspecified. DISCHARGE MEDICATIONS: Please refer to the [facility]. Outpatient psychiatric and medical followup at the [facility]. Time for discharge day management greater than 30 minutes. MAN Javon CUEVA MD DR: Landon JOB#: [id number] / [id number]
== END 2016-09-09 10:15 | DRG 884 ==
LOC: GEROPSY 17:05
PROVIDERS: ADMIT Psychiatry & Neurology Psychiatry; ATTEND Psychiatry & Neurology Psychiatry
DX: F01.51 Vascular dementia, unspecified severity, with behavioral disturbance (principal); F02.81 Dementia in other diseases classified elsewhere, unspecified severity, with behavioral disturbance; E87.0 Hyperosmolality and hypernatremia; G30.9 Alzheimer's disease, unspecified; D69.6 Thrombocytopenia, unspecified; F32.9 Major depressive disorder, single episode, unspecified; F41.9 Anxiety disorder, unspecified; F63.9 Impulse disorder, unspecified; G40.909 Epilepsy, unspecified, not intractable, without status epilepticus; F10.10 Alcohol abuse, uncomplicated; F15.90 Other stimulant use, unspecified, uncomplicated; R29.6 Repeated falls; J44.9 Chronic obstructive pulmonary disease, unspecified; Z66 Do not resuscitate; Z79.899 Other long term (current) drug therapy; Z87.891 Personal history of nicotine dependence; Z91.81 History of falling
CPT/HCPCS: 36415; 80053; 80061; 80164; 82306; 82607; 83036; 83540; 83550; 83735; 84436; 84443; 84480; 85027; 86592; 86593